=== PATIENT | female | born 1955 | race Caucasian/White ===

== ENCOUNTER 2017-01-08 08:13 | Inpatient (IN) | payer BC ==
[~2017-01-08] VITALS: Ht 162.6 cm; Wt 93.0 kg
[~2017-01-08 08:13] MED LIST: CALC600T9 PO; IBUP-103 PO; MULT-506 PO
[2017-01-08] MEDS ORDERED: SODIUM CHLORIDE 0.9% 1000ML 1,000 ML IV STA (08:51)
[2017-01-08 09:10] LABS: URINE APPEARANCE CLEAR (CLEAR); URINE BILIRUBIN NEG (NEG); URINE COLOR YELLOW; URINE NITRITE NEG (NEG); URINE PH 7.5 (4.5-7.5); UROBILINOGEN NEG (NEG)
[2017-01-08 09:12] LABS: MANUAL MICROSCOPIC REQUIRED? NO; REVIEW REQ? NO
[2017-01-08 09:19] LABS: BASO % 0.3 %; BASO ABS # 0.02 K/uL (0-0.2); COMPLETE YES; IG% 0.2 %; LYMPH % 30.6 %; LYMPH ABS # 1.93 K/uL (1.2-3.4); MEAN CELL VOLUME 88.7 fL (80-100); MEAN CORPUSCULAR HEMOGLOBIN 31.3 pg (25-34); MEAN CORPUSCULAR HGB CONC 35.3 g/dl (32-36); MEAN PLATELET VOLUME 10.1 fL (7.4-10.4); MONO % 7.3 %; NEUT % 60.6 %; PLATELET COUNT 207 K/uL (130-400); RED BLOOD COUNT 4.51 M/uL (4.2-5.4)
[2017-01-08 09:30] LABS: PROTHROMBIN TIME (PATIENT) 10.7 SECONDS (9.0-12.0)
[2017-01-08 09:40] LABS: ALT/SGPT 48 U/L (12-78); AST/SGOT 42 U/L (15-37); BLOOD UREA NITROGEN 11 mg/dl (7-18); BUN/CREATININE RATIO 15.2 (10-20); CALCIUM 9.5 mg/dl (8.5-10.1); CARBON DIOXIDE 29 mmol/L (21-32); CHLORIDE 104 mmol/L (98-107); CREATININE 0.71 mg/dl (0.60-1.20); GLUCOSE 129 mg/dl (70-99); POTASSIUM 3.5 mmol/L (3.5-5.1); SODIUM 143 mmol/L (136-145)
[2017-01-08 09:52] LABS: ALB/GLOB RATIO 1.2 (0.9-2); ALKALINE PHOSPHATASE 104 U/L (45-117); CKMB/CK RATIO 0.9 (0-3.0)
--- NOTE | 2017-01-08 09:57 | DIAGNOSTIC IMAGING REPORT ---
TWO VIEW CHEST CLINICAL HISTORY: Midthoracic back pain. Breast mass. FINDINGS: PA and lateral chest radiographs are compared to study dated 08/02/2012. The heart is top normal for projection. There is mild atherosclerotic calcification of the thoracic aorta. The lungs and pleural spaces are clear. There is no pneumothorax. The skeletal structures are osteopenic. The bony thorax appears intact. IMPRESSION: No active disease in the chest. Electronically signed by: David Ordonez M.D. 01/08/2017 9:56 AM Dictated Date/Time: 01/08/2017 9:54 AM
--- NOTE | 2017-01-08 09:59 | DIAGNOSTIC IMAGING REPORT ---
THORACIC SPINE 3 VIEWS ROUTINE CLINICAL HISTORY: MID BACK PAIN, R BREAST MASS COMPARISON STUDY: No previous studies for comparison. FINDINGS: The paraspinal line is not displaced. No destructive lesions are visualized on conventional radiographic imaging. There is slight loss in height of the T5 vertebra and T4 vertebra. There are multilevel degenerative changes present. IMPRESSION: Mild age-indeterminate T4 and T5 vertebral body compression deformities. Electronically signed by: Julien Ward M.D. 01/08/2017 9:57 AM Dictated Date/Time: 01/08/2017 9:56 AM
[2017-01-08] MEDS ORDERED: OPTIRAY 320 IV PRN (10:15)
--- NOTE | 2017-01-08 11:49 | DIAGNOSTIC IMAGING REPORT ---
CT ANGIOGRAPHY OF THE CHEST, PULMONARY EMBOLUS PROTOCOL CLINICAL HISTORY: Back pain. Elevated d-dimer. Right breast mass. COMPARISON STUDY: Chest radiograph August 02, 2012. TECHNIQUE: Following IV administration of 92 mL of Optiray-320, helical axial images of the chest were obtained utilizing the pulmonary embolus protocol. Maximal intensity projections and sagittal and coronal reformats were viewed on an independent 3D workstation. IV contrast was administered without complication. CT DOSE: 672.48 mGy.cm FINDINGS: No pulmonary emboli are identified. There is no evidence of thoracic aortic dissection. The heart is mildly enlarged. There is extensive coronary artery calcification. No enlarged mediastinal or hilar lymph nodes are present. Note is made of an enlarged right axillary lymph node that measures 2.4 x 1.8 cm. There is an ulcerated periareolar right breast mass that measures approximately 5.8 x 4.3 cm. There is associated skin thickening. There is no left axillary lymphadenopathy. Central airways are patent. Two right middle lobe nodules measure up to 6 mm. Note is made of a 4 mm left upper lobe nodule shown on image 233 of 293. There is mosaic attenuation within the lungs. There is no consolidation to suggest pneumonia. There is a 1.5 cm lytic lesion within the posterior left ninth rib. Numerous lytic lesions are noted within visualized skeletal structures, including lesions within the T4, T5 and T6 vertebra with mild loss of height of the T5 vertebral body. There is extensive epidural spread of tumor at these levels, which is suboptimally assessed by CT. There is resultant central canal narrowing, likely moderate to severe in degree. There is possible cord compression. Multiple neural foramen are narrowed by the tumor. The tumor extends into the posterior elements. Upper abdomen is unremarkable with the exception of fatty infiltration of the liver. IMPRESSION: 1. No pulmonary emboli identified. 2. 5.8 cm right subareolar ulcerated breast mass highly suggestive of breast malignancy. Enlarged right axillary lymph node suggestive of rosio spread of disease. 3. Numerous lytic skeletal lesions within the thorax, including T4, T5 and T6 vertebral metastases with pathologic fracture of T5 and impending fracture of T4. Extensive epidural spread of tumor results in moderate to severe narrowing of the central canal which is suboptimally assessed by CT. Possible cord compression. An MRI of the thoracic spine could be obtained with and without contrast. These findings are highly suggestive of a primary right breast malignancy with skeletal metastases. 4. Several small indeterminate pulmonary nodules. Electronically signed by: Daniel Cali M.D. 01/08/2017 11:48 AM Dictated Date/Time: 01/08/2017 11:10 AM
--- NOTE | 2017-01-08 12:00 | EMERGENCY ROOM VISIT NOTE ---
History First contact with patient: 08:22 Chief Complaint: OTHER COMPLAINT Stated Complaint: ULCER ON BREAST, PAIN IN BACK History of Present Illness Patient is a 61-year-old white female who presents to the emergency department accompanied by her for evaluation of 2 complaints. First, she notes that she has had an open draining ulceration on her right breast for over a year. Patient states that it started as a small mass that was slightly sore, then she reports that the "erupted to the surface." The ulceration has been a fairly stable size for some time. It occasionally drains foul-smelling fluid. She notes that it is occasionally tender when she bumps it or touches it. She has tried applying antibiotic ointment to the area. She denies ever noticing increased redness, warmth or swollen lymph nodes in her armpit. She has not been running a fever recently. Secondly, patient notes that she has developed mid back pain over the last month. She describes it as pain along her spine in her mid back between her shoulder blades along her bra line. It has been waxing and waning for about a month, but became "debilitating" this weekend. Her reports that she was in bed all weekend due to the pain. She states that occasionally it is worse with deep breathing and sometimes it is worse with movement, other times she does not have any pain at all. At its worst she rates it a 10/10. Initially her discomfort was alleviated with ibuprofen, but more recently this has been ineffective. The patient presently rates her discomfort a 2/10. She denies any headache, lightheadedness, dizziness or vision changes. No neck or low back pain. She denies any anterior chest pain, palpitations or shortness of breath. She had a cough that was productive of scant mucus recently. She denies any abdominal pain, notes slight nausea last evening, no vomiting, diarrhea or urinary symptoms. No melena, hematochezia or hematemesis. She reports she went through early menopause at age 34. She has never been . She had a D&C many years ago. She has not seen a physician for some time. She denies any diagnoses of hypertension, diabetes or thyroid dysfunction. Review of Systems Review of systems as per HPI. All other systems reviewed were negative. 10 systems reviewed. Past Medical/Surgical History Medical Problems: (1) Breast mass (2) Contusion of left foot (3) Contusion of left foot (4) No Known Active Medical Problems Surgical Problems: (1) History of dilatation and curettage Electronic medical records are reviewed and summarized as above/below. See Problem List. Family History Diabetes mellitus FH: thyroid disease Hypertension Social History Smoking Status: Current Every Day Smoker Drug Use: none Marital Status: Housing Status: lives with family Occupation Status: employed Current/Historical Medications Scheduled Calcium Carbonate-Vitamin D (Calcium + D), 1 TAB PO DAILY Allergies Coded Allergies: Codeine (Verified Allergy, Mild, "DRUNK FEELING", 01/08/17) Physical Exam Vital Signs Date Time Temp Pulse Resp B/P Pulse Ox O2 Delivery O2 Flow Rate FiO2 01/08/17 15:13 Nasal Cannula 2.0 01/08/17 14:59 67 16 150/56 91 Room Air 01/08/17 13:53 71 01/08/17 13:23 67 20 178/93 95 Room Air 01/08/17 11:52 71 16 119/52 93 Room Air 01/08/17 09:56 66 18 167/70 96 Room Air 01/08/17 09:05 74 01/08/17 08:18 36.9 80 18 224/97 95 Room Air Physical Exam CONSTITUTIONAL: Patient is a well-appearing 61-year-old white female who is awake and alert and in mild distress due to her back pain. She is noted to be hypertensive in triage with a blood pressure of 224/97. Repeat vital signs noted improved blood pressure. EYES: Pupils equal, round, reactive to light and accommodation. EOMs intact without nystagmus. Sclera are anicteric. ENT: Tympanic membranes intact, with normal landmarks. External canals are clear. Oral and nasopharynx are clear. Mucous membranes are moist, no lesions , tongue and gums appear normal. NECK: No bruits auscultated. Supple without lymphadenopathy. No thyromegaly. No meningeal signs. Full active range of motion without discomfort. CARDIOVASCULAR: Regular rate and rhythm, with normal S1 and S2, no murmur or gallop or rub is heard. No carotid bruits auscultated. No JVD. Peripheral pulses easy to palpable. RESPIRATORY: Breath sounds equal and clear to auscultation without wheezes, rales, or rhonchi heard. Full and equal chest expansion without accessory muscle use or retractions. BREASTS: Examination of the right breast show a large, open ulceration over the areola, with palpable mass underlying. There is scant drainage noted. No fluctuance is suspected abscess, no increased warmth or induration to indicate cellulitis. No palpable masses or skin lesions are noted on the left breast. No axillary lymphadenopathy is appreciated. GI: Bowel sounds are present. Abdomen is soft, nontender, nondistended. No organomegaly. No pulsatile masses. No guarding or rebound. MUSCULOSKELETAL: Full range of motion of extremities x 4 with good strength. No cyanosis, edema, joint tenderness or swelling. No deformity. Examination of the patient's back does not show any evidence for soft tissue swelling, ecchymosis, abrasions or outward signs of trauma. She has reproducible tenderness to palpation in the mid thoracic region between the scapulae, in addition to some paraspinous muscle tenderness in this region. No pain over the spinous processes of the cervical or lumbar spine and full spine range of motion is noted. INTEGUMENTARY: No lesions or rash, normal skin turgor. NEUROLOGICAL: Alert, oriented, and cooperative. Cranial nerves, sensation and strength grossly intact. Pupils round, equal, and react to light, EOMs are full. LYMPH: No lymphadenopathy. Medical Decision & Procedures ER Provider Diagnostic Interpretation: CT ANGIOGRAPHY OF THE CHEST, PULMONARY EMBOLUS PROTOCOL CLINICAL HISTORY: Back pain. Elevated d-dimer. Right breast mass. COMPARISON STUDY: Chest radiograph August 02, 2012. TECHNIQUE: Following IV administration of 92 mL of Optiray-320, helical axial images of the chest were obtained utilizing the pulmonary embolus protocol. Maximal intensity projections and sagittal and coronal reformats were viewed on an independent 3D workstation. IV contrast was administered without complication. CT DOSE: 672.48 mGy.cm FINDINGS: No pulmonary emboli are identified. There is no evidence of thoracic aortic dissection. The heart is mildly enlarged. There is extensive coronary artery calcification. No enlarged mediastinal or hilar lymph nodes are present. Note is made of an enlarged right axillary lymph node that measures 2.4 x 1.8 cm. There is an ulcerated periareolar right breast mass that measures approximately 5.8 x 4.3 cm. There is associated skin thickening. There is no left axillary lymphadenopathy. Central airways are patent. Two right middle lobe nodules measure up to 6 mm. Note is made of a 4 mm left upper lobe nodule shown on image 233 of 293. There is mosaic attenuation within the lungs. There is no consolidation to suggest pneumonia. There is a 1.5 cm lytic lesion within the posterior left ninth rib. Numerous lytic lesions are noted within visualized skeletal structures, including lesions within the T4, T5 and T6 vertebra with mild loss of height of the T5 vertebral body. There is extensive epidural spread of tumor at these levels, which is suboptimally assessed by CT. There is resultant central canal narrowing, likely moderate to severe in degree. There is possible cord compression. Multiple neural foramen are narrowed by the tumor. The tumor extends into the posterior elements. Upper abdomen is unremarkable with the exception of fatty infiltration of the liver. IMPRESSION: 1. No pulmonary emboli identified. 2. 5.8 cm right subareolar ulcerated breast mass highly suggestive of breast malignancy. Enlarged right axillary lymph node suggestive of rosio spread of disease. 3. Numerous lytic skeletal lesions within the thorax, including T4, T5 and T6 vertebral metastases with pathologic fracture of T5 and impending fracture of T4. Extensive epidural spread of tumor results in moderate to severe narrowing of the central canal which is suboptimally assessed by CT. Possible cord compression. An MRI of the thoracic spine could be obtained with and without contrast. These findings are highly suggestive of a primary right breast malignancy with skeletal metastases. 4. Several small indeterminate pulmonary nodules. TWO VIEW CHEST CLINICAL HISTORY: Midthoracic back pain. Breast mass. FINDINGS: PA and lateral chest radiographs are compared to study dated 08/02/2012. The heart is top normal for projection. There is mild atherosclerotic calcification of the thoracic aorta. The lungs and pleural spaces are clear. There is no pneumothorax. The skeletal structures are osteopenic. The bony thorax appears intact. IMPRESSION: No active disease in the chest. THORACIC SPINE 3 VIEWS ROUTINE CLINICAL HISTORY: MID BACK PAIN, R BREAST MASS COMPARISON STUDY: No previous studies for comparison. FINDINGS: The paraspinal line is not displaced. No destructive lesions are visualized on conventional radiographic imaging. There is slight loss in height of the T5 vertebra and T4 vertebra. There are multilevel degenerative changes present. IMPRESSION: Mild age-indeterminate T4 and T5 vertebral body compression deformities. Laboratory Results 01/08/17 09:05 Red Blood Count 4.51, Mean Corpuscular Volume 88.7, Mean Corpuscular Hemoglobin 31.3, Mean Corpuscular Hemoglobin Concent 35.3, Mean Platelet Volume 10.1, Neutrophils (%) (Auto) 60.6, Lymphocytes (%) (Auto) 30.6, Monocytes (%) (Auto) 7.3, Eosinophils (%) (Auto) 1.0, Basophils (%) (Auto) 0.3, Neutrophils # (Auto) 3.82, Lymphocytes # (Auto) 1.93, Monocytes # (Auto) 0.46, Eosinophils # (Auto) 0.06, Basophils # (Auto) 0.02 01/08/17 09:05 Test 01/08/17 08:50 01/08/17 09:05 01/08/17 09:12 Urine Color YELLOW Urine Appearance CLEAR (CLEAR) Urine pH 7.5 (4.5-7.5) Urine Specific [place] 1.020 (1.000-1.030) Urine Protein NEG (NEG) Urine Glucose (UA) NEG (NEG) Urine Ketones TRACE (NEG) Urine Occult Blood NEG (NEG) Urine Nitrite NEG (NEG) Urine Bilirubin NEG (NEG) Urine Urobilinogen NEG (NEG) Urine Leukocyte Esterase NEG (NEG) White Blood Count 6.30 K/uL (4.8-10.8) Red Blood Count 4.51 M/uL (4.2-5.4) Hemoglobin 14.1 g/dL (12.0-16.0) Hematocrit 40.0 % (37-47) Mean Corpuscular Volume 88.7 fL (80-100) Mean Corpuscular Hemoglobin 31.3 pg (25-34) Mean Corpuscular Hemoglobin Concent 35.3 g/dl (32-36) Platelet Count 207 K/uL (130-400) Mean Platelet Volume 10.1 fL (7.4-10.4) Neutrophils (%) (Auto) 60.6 % Lymphocytes (%) (Auto) 30.6 % Monocytes (%) (Auto) 7.3 % Eosinophils (%) (Auto) 1.0 % Basophils (%) (Auto) 0.3 % Neutrophils # (Auto) 3.82 K/uL (1.4-6.5) Lymphocytes # (Auto) 1.93 K/uL (1.2-3.4) Monocytes # (Auto) 0.46 K/uL (0.11-0.59) Eosinophils # (Auto) 0.06 K/uL (0-0.5) Basophils # (Auto) 0.02 K/uL (0-0.2) RDW Standard Deviation 39.7 fL (36.4-46.3) RDW Coefficient of Variation 12.3 % (11.5-14.5) Immature Granulocyte % (Auto) 0.2 % Immature Granulocyte # (Auto) 0.01 K/uL (0.00-0.02) Prothrombin Time 10.7 SECONDS (9.0-12.0) Prothromb Time International Ratio 1.0 (0.9-1.1) Activated Partial Thromboplast Time 25.3 SECONDS (21.0-31.0) Partial Thromboplastin Ratio 1.0 Anion Gap 10.0 mmol/L (3-11) Est Creatinine Clear Calc Drug Dose 90.8 ml/min Estimated GFR () 105.8 Estimated GFR (Non- 91.3 BUN/Creatinine Ratio 15.2 (10-20) Calcium Level 9.5 mg/dl (8.5-10.1) Total Bilirubin 0.7 mg/dl (0.2-1) Aspartate Amino Transf (AST/SGOT) 42 U/L (15-37) Alanine Aminotransferase (ALT/SGPT) 48 U/L (12-78) Alkaline Phosphatase 104 U/L (45-117) Total Creatine Kinase 68 U/L (26-192) Creatine Kinase MB 0.6 ng/ml (0.5-3.6) Creatine Kinase MB Ratio 0.9 (0-3.0) Troponin I < 0.015 ng/ml (0-0.045) Total Protein 7.0 gm/dl (6.4-8.2) Albumin 3.8 gm/dl (3.4-5.0) Globulin 3.2 gm/dl (2.5-4.0) Albumin/Globulin Ratio 1.2 (0.9-2) Thyroid Stimulating Hormone (TSH) 1.100 uIu/ml (0.300-4.500) Bedside D-Dimer > 450 ng/mlFEU (0-450) Medications Administered Medications (Trade) Dose Ordered Sig/Elida Route Start Time Stop Time Status Last Admin Dose Admin Sodium Chloride (Nss 1000ml) 1,000 ml @ 250 mls/hr Q4H STAT IV 01/08/17 08:51 01/08/17 12:50 DC 01/08/17 10:00 250 MLS/HR Morphine Sulfate (MoRPHine SULFATE INJ) 6 mg NOW STAT IV 01/08/17 12:38 01/08/17 12:40 DC 01/08/17 13:18 6 MG Ondansetron HCl (Zofran Inj) 4 mg NOW STAT IV 01/08/17 12:38 01/08/17 12:40 DC 01/08/17 13:20 4 MG Ondansetron HCl (Zofran Inj) 4 mg STK-MED ONCE .ROUTE 01/08/17 14:55 01/08/17 14:59 DC 01/08/17 15:12 4 MG ECG Indication: back/shoulder pain Rate (beats per minute): 72 Rhythm: normal sinus Findings: no acute ischemic change, no ectopy Change: no significant change ED Course Patient was seen and evaluated as above. Her old records are reviewed. She presents to the emergency department for evaluation of mid back pain 1 month in the setting of a right breast ulceration that has been present for several months. Immediately upon examining her, I was concerned regarding a breast malignancy. IV lock was initiated. She declined any medication for discomfort initially. 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 She was hydrated with normal saline solution. EKG was performed and was as noted above. She was laboratory studies were collected including CBC with differential, coags, cardiac enzymes, TSH, CMP and [id number] d-dimer. Chest x-ray and thoracic spine x-rays were obtained. EKG did not demonstrate any evidence for acute ischemia changes or ectopy. Chest x-ray and a thoracic spine x-rays were essentially negative. Laboratory studies did not demonstrate any leukocytosis or anemia. No coagulopathy. Electrolytes, renal functions and liver functions are within normal limits. Cardiac enzymes are negative 1. TSH is indicative of a euthyroid state. Urinalysis was without signs of infection. D-dimer was elevated and therefore given her back pain, CT angiography of the chest was performed. Findings are as noted above. There was no evidence for pulmonary embolus. She has a 6 cm right ulcerated breast mass with enlarged right axillary lymph nodes suggestive of breast malignancy with notable spread of the disease. She also has numerous lytic skeletal lesions noted in the thoracic spine, with epidural spread of the tumor resulting in moderate to severe narrowing of the central canal. Possibility of cord compression was raised by the interpreting radiologist. MRI was suggested. Findings were highly suggestive of skeletal metastasis from her right breast malignancy. All laboratory and diagnostic imaging studies were reviewed with attending physician, and discussed with the patient and her significant other at length. Admission was discussed with Dr. Castaneda with the [facility] hospitalist service. I did also discuss the patient's CT findings with Dr. Becker, who suggested that given that she is neurologically intact treatment of her metastatic disease to her spine and likely be supportive/palliative in care and not likely to be surgical in nature. The patient did request something for her back pain and was ordered IV morphine and Zofran. She otherwise remained neurologically intact, and remained hemodynamically stable during her emergency department workup. Differential diagnoses entertained included cellulitis, breast mass, acute coronary syndrome , thoracic compression fractures, back strain, pulmonary embolus, aortic dissection, pneumonia, pneumothorax, mass or malignancy, among others. Medical Decision See ED course Impression Primary Impression: Metastatic breast cancer Additional Impression: Thoracic back pain Departure Information Referrals Isauro Chaidez M.D. (PCP) Patient Instructions My [facility] Problem Qualifiers
[2017-01-08] MEDS ORDERED: ONDANSETRON INJ 2 MG/ML 2 ML VIAL IV STA (12:38)
[2017-01-08] MEDS ORDERED: MoRPHine SULFATE 10 MG/ML CARP/VIAL IV STA (12:38)
[2017-01-08] MEDS ORDERED: MoRPHine SULFATE 4 MG/ML 1 ML CARP\\VIAL IV PRN (12:45)
[2017-01-08] MEDS ORDERED: LORAZEPAM 2 MG/ML 1 ML VIAL IV STA (14:47)
[2017-01-08] MEDS ORDERED: ONDANSETRON INJ 2 MG/ML 2 ML VIAL ONE (14:55)
[2017-01-08] MEDS ORDERED: ALUMINUM/MAGNESIUM/SIMETH (MAALOX MAX) 30 ML UDC PO PRN (15:00)
[2017-01-08] MEDS ORDERED: ONDANSETRON INJ 2 MG/ML 2 ML VIAL IV PRN (15:00)
[2017-01-08] MEDS ORDERED: ACETAMINOPHEN 325 MG TAB PO PRN (15:00)
[2017-01-08] MEDS ORDERED: MoRPHine SULFATE 2 MG/ML CARP IV PRN (15:00)
[2017-01-08] MEDS ORDERED: MAGNESIUM HYDROXIDE SUSP 30 ML UDC PO PRN (15:00)
[2017-01-08] MEDS ORDERED: HydrALAZINE HCL 20 MG/ML VIAL IV. PRN (15:00)
[2017-01-08 17:15] VITALS: BP 161/84; PULSE 63; TEMP 37; O2SAT 92
[2017-01-08 17:56] VITALS: BP 161/84; PULSE 63; TEMP 37; O2SAT 92; Ht 162.6 cm; Wt 93.0 kg
[2017-01-08 19:12] VITALS: BP 165/87; PULSE 66; TEMP 36.9; O2SAT 91
[2017-01-08] MEDS: DEXAMETHASONE INJ 4 MG in SYRINGE 0 ML IV SCH (20:09)
--- NOTE | 2017-01-08 20:51 | History and Physical ---
History & Physical Date of Service Jan 08, 2017. History & Physical H&P as dictated by DEBORAH Huang (documented in wrong patient encounter previously) History & Physical Date & Time of Service: Jan 08, 2017 at 14:19 Chief Complaint: Back pain Primary Care Physician: Isauro Chaidez M.D. History of Present Illness Source: patient, family This patient is a pleasant 61-year-old female that presented to the emergency department complaining of mid back pain that she has noticed over the last few months. It got particularly bad over the weekend. She has been taking ibuprofen with minimal relief. She denies any weakness, numbness or tingling in her arms or legs. She denies any shortness of breath. The patient also reports a lesion on her right breast has been there for several months. It started as a tender nodule, and then eroded to the surface. She reports that it has been draining green, foul-smelling fluid. She denies any fever or chills. She knew that it had to be addressed, however she has been having a difficult time with family members being ill. she has not seen a doctor in many years. She denies any masses or pain in the left breast. She denies any known history of cancer. Workup in the emergency department consisted of a CT of the chest. This is worrisome for a malignant breast lesion on the right. It was also noted that she has metastatic lesions to the T-spine, particular T4, T5 and T6. There is an associated fracture at T5 and a "impending fracture at T4." There is also concern for the mass eroding into the epidural space. The case was reviewed with orthopedics-Dr. Becker. The patient will be admitted for further pain management and workup. Past Medical/Surgical History Medical Problems: No known medical problems, however she has not seen a doctor in many years She does note going through early menopause at the age of 34. She was treated with Premarin for hot flashes for approximately 10 years. Surgical Problems: (1) History of dilatation and curettage Status: Resolved Family History Diabetes mellitus FH: thyroid disease Hypertension Father-diabetes. in his 70s. Mother-reportedly of old age at the age of 85 Sister-hyperthyroidism/goiter Social History Smoking Status: Current Every Day Smoker (1/2 PPD) Alcohol Use: none Drug Use: none Marital Status: Housing status: lives with family Occupational Status: employed Multi-Drug Resistant Organisms History of MDRO: No Allergies Coded Allergies: Codeine (Verified Allergy, Mild, "DRUNK FEELING", 01/08/17) Home Medications Scheduled Calcium Carbonate-Vitamin D (Calcium + D), 1 TAB PO DAILY Review of Systems 10 system review performed and negative unless noted in HPI or below Physical Exam General Appearance: no apparent distress Head: normocephalic Eyes: EOMI ENT: + pertinent finding (oral mucosa dry.) Neck: no JVD Respiratory/Chest: lungs clear, + pertinent finding (approximately 3 cm ulceration noted of the right breast over the nipple. Palpable mass approximate 4 cm in diameter underneath. No foul drainage noted. No odor noted. No masses noted in the left breast. No palpable lymphadenopathy noted.) Cardiovascular: regular rate, rhythm Abdomen/GI: normal bowel sounds, non tender, soft Extremities/Musculoskelatal: no calf tenderness, no pedal edema Neurologic/Psych: no motor/sensory deficits, normal reflexes Skin: warm/dry Diagnostics Diagnostic Radiology Patient: HUMBERTO BATISTA Address1: [address] [place] [address] Rec: [id number] Address2: Acct ID: [id number] [facility] Zip: [place] [address] Date: 1955 Sex: F Room/Bed: Ref Phy: Isauro Chaidez M.D. SC: DELVIS Hollis Phy: Report #: [id number] Aylin Phy: Isauro Chaidez M.D. Test: CXPEA Admit Phy: Recruiting Coordinator: YAQUELIN Interpreting Phy: Daniel Cali MD Diagnosis: ULCER ON BREAST, PAIN IN BACK Ordering Phy: Chely Delgado Service Date: 01/08/17 Admit Date: 01/08/17 MNE: PWRSCRIBE CONF: DICTATED BY: Daniel Cali MD]] CC: Chely Delgado PA Guillard, Frank, M.D. Ziff, Theodore, M.D. Endcc: ] CT ANGIOGRAPHY OF THE CHEST, PULMONARY EMBOLUS PROTOCOL CLINICAL HISTORY: Back pain. Elevated d-dimer. Right breast mass. COMPARISON STUDY: Chest radiograph August 02, 2012. TECHNIQUE: Following IV administration of 92 mL of Optiray-320, helical axial images of the chest were obtained utilizing the pulmonary embolus protocol. Maximal intensity projections and sagittal and coronal reformats were viewed on an independent 3D workstation. IV contrast was administered without complication. CT DOSE: 672.48 mGy.cm FINDINGS: No pulmonary emboli are identified. There is no evidence of thoracic aortic dissection. The heart is mildly enlarged. There is extensive coronary artery calcification. No enlarged mediastinal or hilar lymph nodes are present. Note is made of an enlarged right axillary lymph node that measures 2.4 x 1.8 cm. There is an ulcerated periareolar right breast mass that measures approximately 5.8 x 4.3 cm. There is associated skin thickening. There is no left axillary lymphadenopathy. Central airways are patent. Two right middle lobe nodules measure up to 6 mm. Note is made of a 4 mm left upper lobe nodule shown on image 233 of 293. There is mosaic attenuation within the lungs. There is no consolidation to suggest pneumonia. There is a 1.5 cm lytic lesion within the posterior left ninth rib. Numerous lytic lesions are noted within visualized skeletal structures, including lesions within the T4, T5 and T6 vertebra with mild loss of height of the T5 vertebral body. There is extensive epidural spread of tumor at these levels, which is suboptimally assessed by CT. There is resultant central canal narrowing, likely moderate to severe in degree. There is possible cord compression. Multiple neural foramen are narrowed by the tumor. The tumor extends into the posterior elements. Upper abdomen is unremarkable with the exception of fatty infiltration of the liver. IMPRESSION: 1. No pulmonary emboli identified. 2. 5.8 cm right subareolar ulcerated breast mass highly suggestive of breast malignancy. Enlarged right axillary lymph node suggestive of rosio spread of disease. 3. Numerous lytic skeletal lesions within the thorax, including T4, T5 and T6 vertebral metastases with pathologic fracture of T5 and impending fracture of T4. Extensive epidural spread of tumor results in moderate to severe narrowing of the central canal which is suboptimally assessed by CT. Possible cord compression. An MRI of the thoracic spine could be obtained with and without contrast. These findings are highly suggestive of a primary right breast malignancy with skeletal metastases. 4. Several small indeterminate pulmonary nodules. Electronically signed by: Daniel Cali M.D. 01/08/2017 11:48 AM Dictated Date/Time: 01/08/2017 11:10 AM The status of this report is Signed. Draft = Not yet reviewed or approved by Radiologist. Signed = Reviewed and approved by Radiologist. <AttendingPhy></AttendingPhy> <FamilyPhy>Isauro Chaidez M.D.</FamilyPhy> < PrimaryPhy>Isauro Chaidez M.D.</PrimaryPhy> <UnitNumber>[id number]</UnitNumber > <VisitNumber>[id number]</VisitNumber> <PatientName>HUMBERTO BATISTA</ PatientName> <DateOfBirth>1955</DateOfBirth> <Location>C.[facility]ANET[facility]</Location> < ServiceDate>01/08/17</ServiceDate> <MNE>ESINDI</MNE> <OrderingPhy>Chely Delgado PA</OrderingPhy> <OrderingPhyMNE>f rep ord dr bansal</OrderingPhyMNE> < DictatingPhyMNE>f rep dict dr bansal</DictatingPhyMNE> <CCListMNE>f rep ct mne</ CCListMNE> <AdmittingPhyMNE>f pt admit d Impression Assessment and Plan 61-year-old female presented to the emergency department with 2 separate complaints: Right breast mass and mid back pain. Both of them going on for quite some time, at least months. CT of the chest consistent with a right breast mass worrisome for breast malignancy with associated metastatic disease to the T-spine Presumed new dx Breast CA -Admit to oncology -General surgery consult for Breast bx -Orthopedic consult for metastatic thoracic dz-->erosion into epidural space -Neuro checks q 4h -Will need heme/onc/rad onc consults once bx are back -morphine 2 mg q 4 prn for back pain -NPO after midnight -MRI C/T/L spine to eval for further mets and to access spinal canal Presumed HTN-BP elevated upon arrival. Improved now -Hydralazine 10 mg IV q 6 hr PRN -follow BP-->consider initiating longstanding therapy if BP remains high with MANJU of B Luis Daniel DVT prophylaxis -We will hold off on chemical means as the patient will likely undergo a biopsy in the near future -Teds, SCDs -Consider initiating chemical means with heparin or Lovenox after biopsy CODE STATUS -LEVEL I FULL CODE This chart was completed in part utilizing [employer] [facility] [employer] Speech Voice Recognition software. Attempts were made to minimize the grammatical errors, random word insertions, pronoun errors and incomplete sentences. Any formal questions or concerns about the content, text or information contained within the body of this dictation should be directly addressed to the provider for clarification. Level of Care Oncology Resuscitation Status FULL RESUSCITATION VTE Prophylaxis VTE Risk Assessment Done? Y/N: Yes Risk Level: Moderate Given or contraindicated: T.E.DRoland Stockings, SCD's <Electronically signed by Cynthia Huang PA-C> Signed: 01/08/17 1434 Signed: MNE: [facility] History and Physical Template <AttendingPhy>No Doctor, Assigned</AttendingPhy><EDPhy></EDPhy> <FamilyPhy> Isauro Chaidez M.D.</FamilyPhy> <PrimaryPhy>Isauro Chaidez M.D.</PrimaryPhy>< UnitNumber>[id number]</UnitNumber><VisitNumber>[id number]</VisitNumber>< PatientName>HUBMERTO BATISTA</PatientName><DateOfBirth>1955</DateOfBirth><Age >61</Age><Location>z.PTNAV</Location><ServiceDate>01/08/17</ServiceDate><CC> Isauro Chaidez M.D. Lyla Elizabeth, MD Huang, Cynthia Figueroa PA-C</CC><MNE>ACUTEMED</MNE> Physician Card Tender Supervision Note: I interviewed and examined the patient. Discussed with DEBORAH Huang and agree with findings and plan as documented in the note. Any exceptions or clarifications are listed here: Patient admitted with intractable back pain and found to have pathologic fractures of the thoracic spine and a probable breast cancer with a fungating right breast mass. Pain is improved with morphine in the ER. She has no neurologic signs or symptoms by history or exam. Physical exam: Vitals reviewed and blood pressure is improved No acute distress, obese Anicteric sclerae, oropharynx clear Regular rate and rhythm, no murmurs gallops or rubs normal S1-S2 Breast: Right breast with palpable large mass in the subareolar region with some radiation through to the skin that has eroded most of the areola Lungs clear to auscultation bilaterally no wheezes crackles or rhonchi Abdomen positive bowel sounds, soft, nontender, nondistended, obese Extremities no edema, 2+ dorsalis pedis pulses Neuro: Full strength in all extremities, sensation intact throughout to light touch A/P: 61-year-old female with a fungating right breast mass and intractable back pain secondary to pathologic fracture of T5 with mass in the epidural space causing central canal narrowing. No current neurological symptoms. Will treat pain in the back and obtain orthopedic spine consultation, neuro checks every 4 hours. We'll check MRI of the cervical, thoracic, lumbar spine. Consult general surgery to assist with obtaining breast biopsy and further evaluation and treatment to follow based on results of the period Documented By: Lyla Elizabeth
[2017-01-09 01:09] VITALS: BP 147/75; PULSE 66; TEMP 37.1; O2SAT 92
[2017-01-09] MEDS ORDERED: GADAVIST IV PRN (02:30)
[2017-01-09] MEDS: DEXAMETHASONE INJ 4 MG in SYRINGE 0 ML IV SCH ×3 (04:25→20:27)
[2017-01-09 04:29] VITALS: BP 132/69; PULSE 75; TEMP 37.3; O2SAT 93
[2017-01-09 06:14] LABS: COMPLETE YES; HEMATOCRIT 39.2 % (37-47); IG% 0.4 %; LYMPH % 20.2 %; LYMPH ABS # 0.99 K/uL (1.2-3.4); MEAN CELL VOLUME 88.7 fL (80-100); MEAN CORPUSCULAR HEMOGLOBIN 31.2 pg (25-34); MEAN CORPUSCULAR HGB CONC 35.2 g/dl (32-36); MEAN PLATELET VOLUME 10.4 fL (7.4-10.4); MONO % 3.5 %; NEUT % 75.9 %; PLATELET COUNT 214 K/uL (130-400); RED BLOOD COUNT 4.42 M/uL (4.2-5.4); WHITE BLOOD COUNT 4.91 K/uL (4.8-10.8)
[2017-01-09 06:39] LABS: PROTHROMBIN TIME (PATIENT) 10.8 SECONDS (9.0-12.0)
[2017-01-09 06:45] LABS: BUN/CREATININE RATIO 25.7 (10-20); CALCIUM 9.5 mg/dl (8.5-10.1); CREATININE 0.6 mg/dl (0.60-1.20); MAGNESIUM 1.9 mg/dl (1.8-2.4); POTASSIUM 3.7 mmol/L (3.5-5.1)
--- NOTE | 2017-01-09 06:50 | DIAGNOSTIC IMAGING REPORT ---
MRI OF THE CERVICAL SPINE WITH AND WITHOUT CONTRAST CLINICAL HISTORY: Right breast mass. Evaluate for metastatic disease. COMPARISON: None. TECHNIQUE: Utilizing a 1.5 [place] magnet and dedicated coil, multiplanar, multiecho imaging of the cervical spine was performed before and after intravenous administration of 9 of Gadavist. FINDINGS: Alignment of the cervical spine is anatomic. Vertebral body heights are maintained. There is no marrow replacement. There is no intracanalicular mass or fluid collection. Visualized portions of the intracranial contents are unremarkable. Cervical cord signal and caliber are normal. Paravertebral soft tissues are unremarkable. C2-C3: The central canal and neural foramen are patent. C3-C4: Central canal and neural foramen are patent. C4-C5: There is minimal narrowing of the central canal. There is mild narrowing of the right neural foramen. C5-C6: Posterior disc osteophyte complex with a central disc protrusion is noted. This indents the ventral aspect of the cord. This results in moderate to severe narrowing of the central canal. There is no neural foraminal narrowing. C6-C7: Central disc protrusion is present. There is mild narrowing of the central canal. The neural foramen are patent. C7-T1: Central canal and neural foramen are patent. IMPRESSION: 1. No evidence of metastatic disease within the cervical spine. 2. Normal cervical cord signal and caliber. 3. Moderate to severe central canal stenosis at C5-C6 due to posterior disc osteophyte complex with a central disc protrusion which indents the ventral aspect of the cord. Electronically signed by: Daniel Cali M.D. 01/09/2017 6:48 AM Dictated Date/Time: 01/09/2017 6:43 AM
--- NOTE | 2017-01-09 06:54 | Surgery Progress Note ---
Surgery Progress Note Date of Service Jan 09, 2017. Subjective history, studies reviewed- will see pt later today/ this am Objective Vital Signs: Date Time Temp Pulse Resp B/P Pulse Ox O2 Delivery O2 Flow Rate FiO2 01/09/17 04:29 37.3 75 18 132/69 93 Room Air 01/09/17 01:09 37.1 66 20 147/75 92 Room Air 01/09/17 00:00 Room Air 01/08/17 19:12 36.9 66 18 165/87 91 Room Air 01/08/17 17:56 37.0 63 20 161/84 92 Room Air 01/08/17 17:15 37.0 63 20 161/84 92 Room Air 01/08/17 16:15 36.9 67 16 150/56 91 01/08/17 15:13 Nasal Cannula 2.0 01/08/17 14:59 67 16 150/56 91 Room Air 01/08/17 13:53 71 01/08/17 13:23 67 20 178/93 95 Room Air 01/08/17 11:52 71 16 119/52 93 Room Air 01/08/17 09:56 66 18 167/70 96 Room Air 01/08/17 09:05 74 01/08/17 08:18 36.9 80 18 224/97 95 Room Air Laboratory Results: Results Past 24 Hours Test 01/08/17 08:50 01/08/17 08:51 01/08/17 09:05 01/08/17 09:12 Range/Units Urine Color YELLOW Urine Appearance CLEAR CLEAR Urine pH 7.5 4.5-7.5 Urine Specific [place] 1.020 1.000-1.030 Urine Protein NEG NEG Urine Glucose (UA) NEG NEG Urine Ketones TRACE NEG Urine Occult Blood NEG NEG Urine Nitrite NEG NEG Urine Bilirubin NEG NEG Urine Urobilinogen NEG NEG Urine Leukocyte Esterase NEG NEG Creatine Kinase MB Ratio 0.9 0-3.0 White Blood Count 6.30 4.8-10.8 K/uL Red Blood Count 4.51 4.2-5.4 M/uL Hemoglobin 14.1 12.0-16.0 g/dL Hematocrit 40.0 37-47 % Mean Corpuscular Volume 88.7 80-100 fL Mean Corpuscular Hemoglobin 31.3 25-34 pg Mean Corpuscular Hemoglobin Concent 35.3 32-36 g/dl Platelet Count 207 130-400 K/uL Mean Platelet Volume 10.1 7.4-10.4 fL Neutrophils (%) (Auto) 60.6 % Lymphocytes (%) (Auto) 30.6 % Monocytes (%) (Auto) 7.3 % Eosinophils (%) (Auto) 1.0 % Basophils (%) (Auto) 0.3 % Neutrophils # (Auto) 3.82 1.4-6.5 K/uL Lymphocytes # (Auto) 1.93 1.2-3.4 K/uL Monocytes # (Auto) 0.46 0.11-0.59 K/uL Eosinophils # (Auto) 0.06 0-0.5 K/uL Basophils # (Auto) 0.02 0-0.2 K/uL RDW Standard Deviation 39.7 36.4-46.3 fL RDW Coefficient of Variation 12.3 11.5-14.5 % Immature Granulocyte % (Auto) 0.2 % Immature Granulocyte # (Auto) 0.01 0.00-0.02 K/uL Prothrombin Time 10.7 9.0-12.0 SECONDS Prothromb Time International Ratio 1.0 0.9-1.1 Activated Partial Thromboplast Time 25.3 21.0-31.0 SECONDS Partial Thromboplastin Ratio 1.0 Sodium Level 143 136-145 mmol/L Potassium Level 3.5 3.5-5.1 mmol/L Chloride Level 104 98-107 mmol/L Carbon Dioxide Level 29 21-32 mmol/L Anion Gap 10.0 3-11 mmol/L Blood Urea Nitrogen 11 7-18 mg/dl Creatinine 0.71 0.60-1.20 mg/dl Est Creatinine Clear Calc Drug Dose 90.8 ml/min Estimated GFR () 105.8 Estimated GFR (Non- 91.3 BUN/Creatinine Ratio 15.2 10-20 Random Glucose 129 70-99 mg/dl Calcium Level 9.5 8.5-10.1 mg/dl Total Bilirubin 0.7 0.2-1 mg/dl Aspartate Amino Transf (AST/SGOT) 42 15-37 U/L Alanine Aminotransferase (ALT/SGPT) 48 12-78 U/L Alkaline Phosphatase 104 45-117 U/L Total Creatine Kinase 68 26-192 U/L Creatine Kinase MB 0.6 0.5-3.6 ng/ml Troponin I < 0.015 0-0.045 ng/ml Total Protein 7.0 6.4-8.2 gm/dl Albumin 3.8 3.4-5.0 gm/dl Globulin 3.2 2.5-4.0 gm/dl Albumin/Globulin Ratio 1.2 0.9-2 Thyroid Stimulating Hormone (TSH) 1.100 0.300-4.500 uIu/ml Bedside D-Dimer > 450 0-450 ng/mlFEU Test 01/09/17 05:40 Range/Units White Blood Count 4.91 4.8-10.8 K/uL Red Blood Count 4.42 4.2-5.4 M/uL Hemoglobin 13.8 12.0-16.0 g/dL Hematocrit 39.2 37-47 % Mean Corpuscular Volume 88.7 80-100 fL Mean Corpuscular Hemoglobin 31.2 25-34 pg Mean Corpuscular Hemoglobin Concent 35.2 32-36 g/dl Platelet Count 214 130-400 K/uL Mean Platelet Volume 10.4 7.4-10.4 fL Neutrophils (%) (Auto) 75.9 % Lymphocytes (%) (Auto) 20.2 % Monocytes (%) (Auto) 3.5 % Eosinophils (%) (Auto) 0.0 % Basophils (%) (Auto) 0.0 % Neutrophils # (Auto) 3.73 1.4-6.5 K/uL Lymphocytes # (Auto) 0.99 1.2-3.4 K/uL Monocytes # (Auto) 0.17 0.11-0.59 K/uL Eosinophils # (Auto) 0.00 0-0.5 K/uL Basophils # (Auto) 0.00 0-0.2 K/uL RDW Standard Deviation 39.8 36.4-46.3 fL RDW Coefficient of Variation 12.3 11.5-14.5 % Immature Granulocyte % (Auto) 0.4 % Immature Granulocyte # (Auto) 0.02 0.00-0.02 K/uL Prothrombin Time 10.8 9.0-12.0 SECONDS Prothromb Time International Ratio 1.0 0.9-1.1 Sodium Level 141 136-145 mmol/L Potassium Level 3.7 3.5-5.1 mmol/L Chloride Level 103 98-107 mmol/L Carbon Dioxide Level 28 21-32 mmol/L Anion Gap 10.0 3-11 mmol/L Blood Urea Nitrogen 15 7-18 mg/dl Creatinine 0.60 0.60-1.20 mg/dl Est Creatinine Clear Calc Drug Dose 107.5 ml/min Estimated GFR () 113.2 Estimated GFR (Non- 97.7 BUN/Creatinine Ratio 25.7 10-20 Random Glucose 138 70-99 mg/dl Calcium Level 9.5 8.5-10.1 mg/dl Magnesium Level 1.9 1.8-2.4 mg/dl Assessment & Plan 01/09/17- Rt breast mass and Rt axillary mass with lymphadenopathy on CT will formulate a plan for bx/ diagnosis and also ask oncology to see pt in hospital- no plan for bx today addendum- I will be going out of town and will not be able to operate on her for 2-3 weeks. this was discussed with the patient and - I have talked to Dr Sameera Rosenbaum and she is going to see the patient. Dr Nguyen also following patient
--- NOTE | 2017-01-09 06:57 | DIAGNOSTIC IMAGING REPORT ---
MRI OF THE LUMBAR SPINE WITH AND WITHOUT CONTRAST CLINICAL HISTORY: Right breast mass. Evaluate for metastatic disease. COMPARISON STUDY: No previous studies for comparison. TECHNIQUE: Utilizing a 1.5 [place] magnet and dedicated coil, multiplanar, multiecho imaging of the lumbar spine was performed before and after uneventful IV administration of 9 mL of Gadavist. FINDINGS: For purposes of numbering on this exam, the L5-S1 disc space is assigned to axial image 27 of 30. Alignment of the lumbar spine is anatomic. A 9 mm T1 hypointense, T2 hypointense focus along anterior aspect of the inferior endplate of T12 likely reflects a metastasis. This is shown on the MRI of the thoracic spine which will be reported separately. There is no intracanalicular mass or fluid collection within the lumbar canal. Conus terminates at the upper L2 level. Paravertebral soft tissues are unremarkable. No marrow replacement is identified within the lumbar spine. Mild multilevel degenerative changes are present with minimal disc bulge at the L3-L4 level. Central canal and neural foramen within the lumbar spine are patent. A left renal cyst is noted. IMPRESSION: 1. No evidence of metastatic disease within the lumbar spine. 2. 9 mm metastasis along the inferior endplate of the T12 vertebral body. 3. No intracanalicular mass or fluid collection within the lumbar canal. 4. Mild multilevel degenerative changes within the lumbar spine. Electronically signed by: Daniel Cali M.D. 01/09/2017 6:55 AM Dictated Date/Time: 01/09/2017 6:48 AM
--- NOTE | 2017-01-09 07:06 | DIAGNOSTIC IMAGING REPORT ---
MRI OF THE THORACIC SPINE WITHOUT A WITH GADOLINIUM CLINICAL HISTORY: Back pain. Right breast mass. Abnormal chest CT with suspected metastasis with possible epidural spread COMPARISON STUDY: Conventional radiographic study dated 01/08/2017, CT scan dated 12/11/2016 FINDINGS: Imaging was performed in the sagittal and axial planes, before and after the administration of 9 cc of intravenous Gadavist. There are areas of marrow replacement T4, T5, T6, and T12 levels. At the T5 level, there is involvement of the posterior elements. There is epidural tumor spread with moderate spinal canal narrowing at the T4 and T5 levels. There is also narrowing of the right T4-5 neural foramen There is a small central disc protrusion at the T6-7 level. No intrinsic thoracic cord lesions are visualized. IMPRESSION: 1. Areas of marrow replacement the T4, T5, T6 levels, consistent with metastatic disease. There is also a focus of marrow edema/replacement involving the anterior inferior T12 endplate. This focus could either be degenerative or related to an additional focus of metastatic disease. 2. Epidural tumor spread at the T4-T5 levels with moderate secondary spinal canal narrowing. There is also narrowing of the right T4-5 neural foramen Electronically signed by: Julien Ward M.D. 01/09/2017 7:05 AM Dictated Date/Time: 01/09/2017 6:55 AM
[2017-01-09 08:01] VITALS: BP 143/78; PULSE 67; TEMP 36.9; O2SAT 94
--- NOTE | 2017-01-09 10:14 | Surgery Consultation ---
Consultation Date of Consultation: Jan 09, 2017. Attending Physician: Lyla Elizabeth MD Reason for Consultation: Ulcerative Right Breast Mass (Katja Pappas PA-C) History of Present Illness Zeina is a very pleasant 61 year-old female who presented to emergency department yesterday with complaint of back pain that has been persistent for the past couple of months. States the back pain was a dull aching pain however over the weekend noticed increasing pain in to which she did not do much movement over the weekend. Denies pain as sharp and stabbing. Denies of any numbness or tingling. States she also has had a ulceration mass on her right breast for at least a few months. States she fist noticed it as a small nodule under the skin and then stated it eroded through the breast fairly quickly. It has been draining for the past couple of months. States she had a mammogram when she was in her 40's in which she was referred to Dr. 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 Zeina has not been to a doctor in many years. States she has had a lot of other issues with family members and did not get herself taken care of. Zeina denies of any family history of breast cancer in immediate family. Has three sisters and no children. Denies of any family history of ovarian or pancreatic cancer. Menarche at age 12 and early menopause at age 34. Did take Premarin for 10 years and then stopped. No other hormonal replacement therapy. No previous breast biopsies. Denies of any fever, chills, night sweats, unintentional weight loss. States the breast mass is painful when touched or bumped otherwise denies breast pain. Has not had a recent mammogram. (Katja Pappas PA-C) Past Medical/Surgical History Medical Problems: (1) Metastatic breast cancer Status: Acute (2) Thoracic back pain Status: Acute (Katja Pappas PA-C) Family History Diabetes mellitus FH: thyroid disease Hypertension (Katja Pappas PA-C) Diabetes mellitus FH: thyroid disease Hypertension (Sameera Rosenbaum MD) Social History Smoking Status: Current Every Day Smoker Drug Use: none Marital Status: Housing Status: lives with family Occupation Status: employed (Katja Pappas PA-C) Allergies Coded Allergies: Codeine (Verified Allergy, Mild, "DRUNK FEELING", 01/08/17) Home Medications Scheduled Calcium Carbonate-Vitamin D (Calcium + D), 1 TAB PO DAILY Current Inpatient Medications Current Inpatient Medications Medications (Trade) Dose Ordered Sig/Elida Route Start Time Stop Time Status Last Admin Dose Admin Ioversol (Optiray 320) 100 ml UD PRN IV 01/08/17 10:15 01/12/17 10:14 Acetaminophen (Tylenol Tab) 650 mg Q4H PRN PO 01/08/17 15:00 02/07/17 14:59 01/08/17 17:25 650 MG Al Hydrox/Mg Hydrox/Simethicone (Maalox Max Susp) 15 ml Q4H PRN PO 01/08/17 15:00 02/07/17 14:59 Magnesium Hydroxide (Milk Of Magnesia Susp) 30 ml Q6H PRN PO 01/08/17 15:00 02/07/17 14:59 Ondansetron HCl (Zofran Inj) 4 mg Q6H PRN IV 01/08/17 15:00 02/07/17 14:59 Morphine Sulfate (MoRPHine SULFATE INJ) 2 mg Q4 PRN IV 01/08/17 15:00 01/22/17 14:59 Hydralazine HCl 10 mg 10 mg Q6H PRN IV. 01/08/17 15:00 02/07/17 14:59 Dexamethasone Sodium Phosphate/ Syringe (Decadron Inj/ Syringe) 1 ml @ 1 mls/min Q8H IV 01/08/17 20:00 02/07/17 19:59 01/09/17 04:25 1 MLS/MIN Gadobutrol (Gadavist) 9 mmol UD PRN IV 01/09/17 02:30 01/13/17 02:29 (Katja Pappas, BRENTC) Review of Systems Constitutional: No chills, No fever, No sweats, No weight loss ENT: No hearing loss Respiratory: No shortness of breath Cardiovascular: No chest pain Abdomen: No constipation, No diarrhea, No nausea, No pain, No vomiting Musculoskeletal: + problem reported (back pain for a few months) Hematologic / Lymphatic: No night sweats, No swollen lymph nodes Integumentary: + problem reported (ulcerated lesion on the breast with drainage occasional, slight pain to the touch) (Katja Pappas ., PA-C) Physical Exam Date Time Temp Pulse Resp B/P Pulse Ox O2 Delivery O2 Flow Rate FiO2 01/09/17 09:09 Room Air 01/09/17 08:01 36.9 67 16 143/78 94 01/09/17 04:29 37.3 75 18 132/69 93 Room Air 01/09/17 01:09 37.1 66 20 147/75 92 Room Air 01/09/17 00:00 Room Air 01/08/17 19:12 36.9 66 18 165/87 91 Room Air 01/08/17 17:56 37.0 63 20 161/84 92 Room Air 01/08/17 17:15 37.0 63 20 161/84 92 Room Air 01/08/17 16:15 36.9 67 16 150/56 91 01/08/17 15:13 Nasal Cannula 2.0 01/08/17 14:59 67 16 150/56 91 Room Air 01/08/17 13:53 71 01/08/17 13:23 67 20 178/93 95 Room Air 01/08/17 11:52 71 16 119/52 93 Room Air Right Breast: There is a 5 cm ulcerated mass of the right breast, nipple is not present. There is no drainage on palpation. No other palpable breast mass of the right breast. no peau d'orange, dimpling, or retractions Left Breast: Slight thickening of the upper outer quadrant of the left breast, no palpable mass, no peau d'orange, skin retractions, or dimpling. Nipple everted, no nipple discharge. General Appearance: WD/WN, no apparent distress Head: normocephalic, atraumatic Eyes: sclerae normal Neck: trachea midline Respiratory/Chest: no respiratory distress, no accessory muscle use Cardiovascular: regular rate, rhythm Abdomen/GI: soft Neurologic/Psych: alert, normal mood/affect, oriented x 3 Lymphatic: + axillary node abnormality (right axillary lymph node palpable) (Katja Pappas ., PA-C) Laboratory Results Last 24 Hours Test 01/09/17 05:40 White Blood Count 4.91 K/uL Red Blood Count 4.42 M/uL Hemoglobin 13.8 g/dL Hematocrit 39.2 % Mean Corpuscular Volume 88.7 fL Mean Corpuscular Hemoglobin 31.2 pg Mean Corpuscular Hemoglobin Concent 35.2 g/dl Platelet Count 214 K/uL Mean Platelet Volume 10.4 fL Neutrophils (%) (Auto) 75.9 % Lymphocytes (%) (Auto) 20.2 % Monocytes (%) (Auto) 3.5 % Eosinophils (%) (Auto) 0.0 % Basophils (%) (Auto) 0.0 % Neutrophils # (Auto) 3.73 K/uL Lymphocytes # (Auto) 0.99 K/uL Monocytes # (Auto) 0.17 K/uL Eosinophils # (Auto) 0.00 K/uL Basophils # (Auto) 0.00 K/uL RDW Standard Deviation 39.8 fL RDW Coefficient of Variation 12.3 % Immature Granulocyte % (Auto) 0.4 % Immature Granulocyte # (Auto) 0.02 K/uL Prothrombin Time 10.8 SECONDS Prothromb Time International Ratio 1.0 Sodium Level 141 mmol/L Potassium Level 3.7 mmol/L Chloride Level 103 mmol/L Carbon Dioxide Level 28 mmol/L Anion Gap 10.0 mmol/L Blood Urea Nitrogen 15 mg/dl Creatinine 0.60 mg/dl Est Creatinine Clear Calc Drug Dose 107.5 ml/min Estimated GFR () 113.2 Estimated GFR (Non- 97.7 BUN/Creatinine Ratio 25.7 Random Glucose 138 mg/dl Calcium Level 9.5 mg/dl Magnesium Level 1.9 mg/dl CT ANGIOGRAPHY OF THE CHEST, PULMONARY EMBOLUS PROTOCOL CLINICAL HISTORY: Back pain. Elevated d-dimer. Right breast mass. COMPARISON STUDY: Chest radiograph August 02, 2012. TECHNIQUE: Following IV administration of 92 mL of Optiray-320, helical axial images of the chest were obtained utilizing the pulmonary embolus protocol. Maximal intensity projections and sagittal and coronal reformats were viewed on an independent 3D workstation. IV contrast was administered without complication. CT DOSE: 672.48 mGy.cm FINDINGS: No pulmonary emboli are identified. There is no evidence of thoracic aortic dissection. The heart is mildly enlarged. There is extensive coronary artery calcification. No enlarged mediastinal or hilar lymph nodes are present. Note is made of an enlarged right axillary lymph node that measures 2.4 x 1.8 cm. There is an ulcerated periareolar right breast mass that measures approximately 5.8 x 4.3 cm. There is associated skin thickening. There is no left axillary lymphadenopathy. Central airways are patent. Two right middle lobe nodules measure up to 6 mm. Note is made of a 4 mm left upper lobe nodule shown on image 233 of 293. There is mosaic attenuation within the lungs. There is no consolidation to suggest pneumonia. There is a 1.5 cm lytic lesion within the posterior left ninth rib. Numerous lytic lesions are noted within visualized skeletal structures, including lesions within the T4, T5 and T6 vertebra with mild loss of height of the T5 vertebral body. There is extensive epidural spread of tumor at these levels, which is suboptimally assessed by CT. There is resultant central canal narrowing, likely moderate to severe in degree. There is possible cord compression. Multiple neural foramen are narrowed by the tumor. The tumor extends into the posterior elements. Upper abdomen is unremarkable with the exception of fatty infiltration of the liver. IMPRESSION: 1. No pulmonary emboli identified. 2. 5.8 cm right subareolar ulcerated breast mass highly suggestive of breast malignancy. Enlarged right axillary lymph node suggestive of rosio spread of disease. 3. Numerous lytic skeletal lesions within the thorax, including T4, T5 and T6 vertebral metastases with pathologic fracture of T5 and impending fracture of T4. Extensive epidural spread of tumor results in moderate to severe narrowing of the central canal which is suboptimally assessed by CT. Possible cord compression. An MRI of the thoracic spine could be obtained with and without contrast. These findings are highly suggestive of a primary right breast malignancy with skeletal metastases. 4. Several small indeterminate pulmonary nodules. MRI OF THE THORACIC SPINE WITHOUT A WITH GADOLINIUM CLINICAL HISTORY: Back pain. Right breast mass. Abnormal chest CT with suspected metastasis with possible epidural spread COMPARISON STUDY: Conventional radiographic study dated 01/08/2017, CT scan dated 12/11/2016 FINDINGS: Imaging was performed in the sagittal and axial planes, before and after the administration of 9 cc of intravenous Gadavist. There are areas of marrow replacement T4, T5, T6, and T12 levels. At the T5 level, there is involvement of the posterior elements. There is epidural tumor spread with moderate spinal canal narrowing at the T4 and T5 levels. There is also narrowing of the right T4-5 neural foramen There is a small central disc protrusion at the T6-7 level. No intrinsic thoracic cord lesions are visualized. IMPRESSION: 1. Areas of marrow replacement the T4, T5, T6 levels, consistent with metastatic disease. There is also a focus of marrow edema/replacement involving the anterior inferior T12 endplate. This focus could either be degenerative or related to an additional focus of metastatic disease. 2. Epidural tumor spread at the T4-T5 levels with moderate secondary spinal canal narrowing. There is also narrowing of the right T4-5 neural foramen MRI OF THE LUMBAR SPINE WITH AND WITHOUT CONTRAST CLINICAL HISTORY: Right breast mass. Evaluate for metastatic disease. COMPARISON STUDY: No previous studies for comparison. TECHNIQUE: Utilizing a 1.5 [place] magnet and dedicated coil, multiplanar, multiecho imaging of the lumbar spine was performed before and after uneventful IV administration of 9 mL of Gadavist. FINDINGS: For purposes of numbering on this exam, the L5-S1 disc space is assigned to axial image 27 of 30. Alignment of the lumbar spine is anatomic. A 9 mm T1 hypointense, T2 hypointense focus along anterior aspect of the inferior endplate of T12 likely reflects a metastasis. This is shown on the MRI of the thoracic spine which will be reported separately. There is no intracanalicular mass or fluid collection within the lumbar canal. Conus terminates at the upper L2 level. Paravertebral soft tissues are unremarkable. No marrow replacement is identified within the lumbar spine. Mild multilevel degenerative changes are present with minimal disc bulge at the L3-L4 level. Central canal and neural foramen within the lumbar spine are patent. A left renal cyst is noted. IMPRESSION: 1. No evidence of metastatic disease within the lumbar spine. 2. 9 mm metastasis along the inferior endplate of the T12 vertebral body. 3. No intracanalicular mass or fluid collection within the lumbar canal. 4. Mild multilevel degenerative changes within the lumbar spine. MRI OF THE CERVICAL SPINE WITH AND WITHOUT CONTRAST CLINICAL HISTORY: Right breast mass. Evaluate for metastatic disease. COMPARISON: None. TECHNIQUE: Utilizing a 1.5 [place] magnet and dedicated coil, multiplanar, multiecho imaging of the cervical spine was performed before and after intravenous administration of 9 of Gadavist. FINDINGS: Alignment of the cervical spine is anatomic. Vertebral body heights are maintained. There is no marrow replacement. There is no intracanalicular mass or fluid collection. Visualized portions of the intracranial contents are unremarkable. Cervical cord signal and caliber are normal. Paravertebral soft tissues are unremarkable. C2-C3: The central canal and neural foramen are patent. C3-C4: Central canal and neural foramen are patent. C4-C5: There is minimal narrowing of the central canal. There is mild narrowing of the right neural foramen. C5-C6: Posterior disc osteophyte complex with a central disc protrusion is noted. This indents the ventral aspect of the cord. This results in moderate to severe narrowing of the central canal. There is no neural foraminal narrowing. C6-C7: Central disc protrusion is present. There is mild narrowing of the central canal. The neural foramen are patent. C7-T1: Central canal and neural foramen are patent. IMPRESSION: 1. No evidence of metastatic disease within the cervical spine. 2. Normal cervical cord signal and caliber. 3. Moderate to severe central canal stenosis at C5-C6 due to posterior disc osteophyte complex with a central disc protrusion which indents the ventral aspect of the cord. (Katja Pappas ., PA-C) Assessment & Plan Ulcerated Right Breast Mass -Ct of the chest showing 5.8 x 4.3 cm ulcerated breast mass, sanjuanita-areolar as well as numerous lytic skeletal lesions within the thorax, including T4, T5 and T6 vertebral metastases with pathologic fracture of T5 and impending fracture of T4. Concerning for primary breast malignancy with metastasis to the thoracic spine. - Enlarged Right axillary lymph node - Cervical and Lumbar spine MRI showing no lytic lesions - All vital signs stable - H&H within normal limits Plan: Will need PET/CT scan to further evaluate extent of Metastasis as well a mammogram and ultrasound with biopsy. Dr. Rosenbaum to see patient and coordinate care with breast center and radiation and medical oncologists. Continue management established by medicine Continue pain management prn (Katja Pappas ., PA-C) Pt seen and examined. Imaging reviewed. Has osseous metastasis, large right breast mass eroding into nipple with axillary adenopathy, small indeterminate pulmonary nodules. PET not done. No breast imaging. On exam, near 6-8 cm central breast mass right side with erosion and replacement of nipple/ areolar complex. No active infection. No erythema. 2.5 cm mobile axillary node right side. Left breast/ axilla OK. Discussed plan - given metastatic disease, I would recommend initial treatment with chemotherapy and then reassessment of response. Consider pet for better eval of pulmonary nodules. Needs tissue diagnosis - this would be best obtained with core/ clip placement so that node/ mass still identifiable after chemo. I am awaiting a call back from breast center to try and get her in quickly for imaging and tissue diagnosis. Discussed benefit of chemo upfront - may potentially allow for less surgery (and therefore less morbidity) in axilla, will allow for reassessment of her disease response/ progression to see if salvage mastectomy is indicated. Explained that the main risk is infection of the wound, in which case, she would need chemo held and salvage mastectomy potentially sooner. This was discussed with Dr. Cespedes who is going to start her palliative radiation therapy for her spine. Message left for Dr. Nguyen to go over the plan and see his opinion. All questions answered. She understands she would need to be discharged to have the breast imaging / biopsy. Dr. Cespedes is OK with her discharge and continuing radiation as outpatient. Her pain is better controlled and she feels she would be OK to go home once a final plan is set. (Sameera Rosenbaum MD)
--- NOTE | 2017-01-09 10:47 | ONCOLOGY CONSULTATION ---
DATE OF CONSULTATION: 01/09/2017 REASON FOR CONSULTATION: Probable right breast cancer. HISTORY OF PRESENT ILLNESS: Zeina Hudson is a pleasant 61-year-old postmenopausal female who presented to the Emergency Department complaining of mid-thoracic pain she noticed over the past several months. Apparently over the preceding weekend her pain intensified and she had been using nonsteroidal anti-inflammatories with minimal relief. She denies any associated numbness, tingling or generalized weakness. Zeina also reports presence of a right-sided breast lesion that she has been observing for several months. She estimates at least 1 year where she started noticing changes particularly inverted nipple. She states that it started as a tender nodule and then has developed into a completely effaced nipple complex and is now ulcerated and draining foul smelling fluid. She readily admits she has not undergone a mammogram or even visited docs over the past several years. She appears to have a phobia to needles and procedures. In the Emergency Department, the CT scan of the chest confirmed a malignant appearing lesion in the right breast with possible right-sided axillary lymphadenopathy. Bony lesions, particularly T4, T5 and T6 are noted with a compression fracture at T4 and mass eroding into the epidural space. The patient was to be admitted for further workup. Dr. Pankaj Mckeon is on consult and I believe a biopsy of the right breast is pending. PAST MEDICAL HISTORY: She has no known medical problems. Again has not seen a physician in many years. She went into early menopause at age 34 and was treated with Premarin for hot flashes for approximately 10 years. PAST SURGICAL HISTORY: Includes dilation and curettage. MEDICATIONS: Prior to admission include calcium carbonate with vitamin D 1 tablet p.o. every day. ALLERGIES: CODEINE. FAMILY HISTORY: Father in his 70s from diabetes mellitus. Mother of natural causes at age 85. Sister suffers from hyperthyroidism. SOCIAL HISTORY: The patient is an everyday smoker, half pack a day. She admits to multiple years, but is nonspecific. 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 Negative for alcohol or illicit drug use. REVIEW OF SYSTEMS: Most notably for mid-thoracic back pain but otherwise negative for weight loss, anorexia, fevers, chills or night sweats. SKIN: No rashes or lesions. No history of dermatosis. HEENT: Negative for headaches, lightheadedness or dizziness. No visual or hearing deficits. No sinus symptoms, sore throat or dysphagia. LYMPH: Palpable right axillary lymphadenopathy. CARDIAC: No history of coronary artery disease, no angina or palpitations. PULMONARY: No history of COPD. No shortness of breath, dyspnea or orthopnea. No cough or hemoptysis. GASTROINTESTINAL: Negative for abdominal pain, nausea, vomiting, diarrhea or constipation, hematochezia or melena in stools. GENITOURINARY: No hematuria, dysuria. Actually positive for urinary incontinence. She describes as a weak bladder. MUSCULOSKELETAL: As per HPI most notably for mid-thoracic back pain and CT scan findings consistent with bony metastatic disease. ENDOCRINE: Negative for diabetes or thyroid disease. NEUROLOGIC: Negative for seizure, stroke, or migraine headache. HEMATOLOGIC: Negative for anemia, thrombophilia or bleeding diathesis. PHYSICAL EXAMINATION: GENERAL: Very pleasant 61-year-old white female, awake, alert, conversant and appropriate, no acute distress. VITAL SIGNS: Temperature 36.9, pulse 67, respirations 16, blood pressure 143/78. SKIN: Warm, dry, noncyanotic without petechia, rash or ecchymosis. HEAD: Atraumatic, normocephalic. EYES: PERRLA, EOMI. Sclerae nonicteric. No conjunctival injection. Nares are patent without rhinorrhea or discharge. Throat is clear. Tongue is midline. Mucous membranes are moist. NECK: Supple without JVD or thyromegaly. LYMPH: Palpable right axillary lymphadenopathy at least 2 cm in diameter. HEART: Regular rate and rhythm. No clicks, rubs, murmurs or gallops. LUNGS: Clear to auscultation bilaterally. BREAST EXAMINATION: Palpable 7-8 cm mass involving the entire nipple complex. Nipple is completely defaced, ulcerated and draining. ABDOMEN: Soft, nontender, nondistended without palpable hepatosplenomegaly. No rigidity or guarding. Bowel sounds are active. EXTREMITIES: Musculoskeletal strength and pulses are equal. No clubbing, cyanosis or edema. NEUROLOGICALLY: She is awake, alert and oriented x3. Cranial nerves II through XII are intact. No gross motor or sensory deficits are noted. LABORATORY DATA: WBC count 49.10, hemoglobin 13.8, platelet count 214,000. Sodium 141, potassium 3.7, chloride 103, carbon dioxide 28, BUN 15, creatinine 0.6. IMAGING: MRI of the thoracic spine performed on 01/08/2017. There is marrow displacement, T4, T5, T6 consistent with metastatic disease, also marrow edema/replacement in the anterior inferior portion of the T12 endplate, epidural tumor spread at T4 and T5 with moderate secondary spinal canal narrowing. MRI of the cervical spine findings consistent with emerging spinal stenosis at C2 through C5. CTA of the chest 5.8 cm subareolar ulcerated breast mass suggestive of breast malignancy, enlarged right axillary lymph node again suggestive of rosio spread of disease. Numerous lytic skeletal lesions again including T4, T5 and T6 with pathologic fracture of T5 and impending fracture of T4. Extensive epidural spread of tumor also noted within the central canal. IMPRESSION: Probable metastatic breast cancer. PLAN: Dr. Pankaj Mckeon consulted medical oncology to assist in the care of this postmenopausal 61-year-old female patient with probable breast cancer. Biopsy has not been performed and plans are underway to have her undergo core biopsy later on today. By physical examination, the suspected mass is quite large and again nipple is completely effaced consistent with breast malignancy. The bony findings are very concerning, particularly the impending fractures at both T4 and T5 and epidural extension. Will ask radiation oncology to consider palliative radiation to the thoracic spine, would also ask orthopedics to consider kyphoplasty. As for long-term treatment plan this lady will most likely require chemotherapy. ER, DC and HER-2/alena status have yet to be determined, which is essential in guiding us to establish a therapeutic plan. I had a lengthy conversation with the patient and her at bedside. Clearly her spine needs to be managed first. I will plan to see Zeina as an outpatient to make formal recommendations regarding chemotherapy. Thank you very much for allowing me to participate in her care. I will continue to follow her periodically during her hospital stay. If you have any further questions or concerns, feel free to contact me at any time.
--- NOTE | 2017-01-09 11:16 | ORTHOPEDIC CONSULTATION ---
DATE OF CONSULTATION: 01/09/2017 DATE OF CONSULTATION: 01/09/2017. CHIEF COMPLAINT: Evaluate thoracic back pain and metastatic breast CA. HISTORY OF PRESENT ILLNESS: This is a 61-year-old female who presented to the Emergency Department mid back pain in the upper thoracic region. It has been present for a few months, progressed in severity, prompting evaluation in the ED. She reports she has had breast lesion in the right breast present for several months, has not been evaluated and work up in the ED was worrisome for a malignant lesion of the right breast. She had multiple metastatic lesions thoracic spine involving T4, T5 and T6 vertebral bodies, as well as T9 and 12. This study revealed marrow signal change most significantly in T4, T5 and T6. It appeared there was some soft tissue component extending behind the body of T5 with the PLL remaining intact, bilobed soft tissue extension on each side of the PLL in the anterior epidural space. There is some extension of the right T4-5 neural foramen. I believe there is some involvement of the right T5 pedicle and transverse process as well as the posterior elements in the pars and maybe even the lamina on the right side at the same level. There is no overt spinal cord compression. There is no signal change or myelomalacia. She denies balance problems, incontinence, retention, numbness or weakness in the lower extremities. Her pain has been much improved since admission without pain medication but she has been on parenteral steroids. MRI of the cervical spine did not reveal any bony metastasis with some typical degenerative changes, had significant stenosis. Lumbar spine MRI indicated T12 vertebral metastasis and mild degenerative changes. There is no significant collapse of the vertebral body of T4-T5 on the MRIs. PAST MEDICAL HISTORY: Unremarkable with a history of D&C. SOCIAL HISTORY: The patient is a smoker, and currently employed. ALLERGIES: ALLERGIC TO CODEINE. REVIEW OF SYSTEMS: Per the HPI. PHYSICAL EXAMINATION: The patient is a pleasant 61-year-old female who appears younger than stated age. She answers questions appropriately, was alert and comfortable. She was able to roll over in bed independently without discomfort, sit up without any difficulty. NEUROLOGIC EXAMINATION: Lower extremities revealed normal strength in mini motor testing in all motor groups. Intact sensation to light touch in all distributions and symmetrically diminished DTRs of the patella. She had no clonus. Downgoing Babinskis bilaterally. I did not have her ambulate, but she reports she has been ambulating comfortably in the hallway independently. ASSESSMENT: Newly diagnosed breast CA with widely metastatic spinal disease. PLAN: At this point, given dissemination of the spinal metastasis surgical resection is not a reasonable alternative. She is currently neurologically intact and is comfortable without bracing. The location of the spinal mets in the upper thoracic spine does make bracing a challenge as any normal TLSO would simply create greater stress at this region. While a Nilam brace could be considered they are poorly tolerated. As far as pain control it appears she is well managed at this time. She is not the best candidate for kyphoplasty of the pathological fracture of T5 due to bony destruction on CT and soft tissue extension through the posterior wall and right pedicle. The risk of cement extravasation would be increased and also this will be particularly challenging to do both due to the location in the upper thoracic spine making intraoperative radiographs more difficult to monitor for extravasation. Given that she has 3 level metastasis addressing one may increase the biomechanical stress on the other levels of metastasis. I think at this point consultation with oncology and radiation oncology would be prudent and I believe they have been consulted. I defer to their judgment for radiation therapy to the region. The risk of involution and subsequent collapse was reviewed. If she develops neurologic deterioration and the goal was to do resection and stabilization, referral to tertiary care due to the location and complexity necessary would be recommended. Thank you for the consultation. ELIZABETH
[2017-01-09 11:23] VITALS: BP 149/68; PULSE 74; TEMP 37.4; O2SAT 92
--- NOTE | 2017-01-09 15:04 | Radiation Oncology Consult ---
Radiation Oncology Consult Date / Reason Jan 09, 2017. We were asked to see Ms. Hudson for evaluation and discuss the role of palliative radiation following the finding of a right breast mass and evidence of metastatic disease to the thoracic spine with evidence of spinal cord impingement. Diagnosis (1) Breast mass Stage: IV (2) Thoracic back pain Stage: IV (3) Metastatic breast cancer Stage: IV History of Present Illness Ms. Hudson is a 61-year-old postmenopausal female without a family history of breast cancer. The patient was aware of a palpable right breast abnormality for at least a year longer. This started as a tender nodule and ultimately progressed to an ulcerating and draining mass involving the nipple areolar complex. The lesion was not painful but was tender. Patient was not being followed with screening mammograms and has not seen a physician for many years. Recently the patient noted the onset of upper mid thoracic pain that has been progressively more severe over the past several months. She noted an increase in the severity of the pain over the past weekend. She was taking ibuprofen without significant benefit. The pain was worse with standing but not entirely relieved by sitting or lying flat. The patient denied tingling or numbness of the lower extremity or weakness of the lower extremity. The patient presented to the emergency department where studies were performed. A CT scan of the chest revealed no pulmonary emboli or thoracic aortic dissection. There were no enlarged mediastinal or hilar lymph nodes present. There was an enlarged right axillary lymph node measuring 2.4 x 1.8 cm. There was also an ulcerated periareolar right breast mass measuring 5.8 x 4.3 cm with associated skin thickening. There was no left axillary lymphadenopathy. There were 2 right middle lobe nodules measuring up to 6 mm and a 4 mm left upper lobe nodule. There was a 1.5 cm lytic lesion seen within the posterior left ninth rib and numerous lytic lesions visualized within the skeletal structures. This included lesions within T4, T5 and T6 vertebrae with mild loss of height of the T5 vertebral body. There was extensive epidural spread of tumor at these levels which was suboptimally assessed by CT scan. This resulted in central canal narrowing likely moderate to severe in degree. There was possible cord compression. Multiple neural foramen were narrowed by tumor. Tumor extends into the posterior elements. There was no evidence of liver metastasis appreciated. MRI of the cervical and lumbar vertebral body showed some degenerative changes but no evidence of metastatic disease. MRI of the thoracic spine however revealed areas of marrow replacement involving the T4, T5 and T6 levels consistent with metastatic disease. There was also a focus of marrow edema/ replacement involving the anterior inferior T12 endplate. This focus could either be degenerative or related to an additional focus of metastatic disease. Epidural tumor spread was noted at the T4-T5 levels with moderate secondary spinal canal narrowing. There was also narrowing of the right T4-T5 neural foramen. Patient was seen in referral by Dr. Pankaj Mckeon for consideration of tissue diagnosis or treatment options. The patient was also arranged to be seen by Dr. Jonah Nguyen for medical oncology evaluation. They discussed the need to obtain tissue diagnosis to better define systemic treatment options in light of obvious metastatic disease. Also the ER/PA and HER-2/alena status are critical to deciding treatment options. Dr. Nguyen suggested an orthopedic consult to consider possible kyphoplasty to the T5 vertebral body. He felt the patient was not the best candidate for kyphoplasty of the pathologic fracture T5 due to the bony destruction seen on CT scan and soft tissue extension to the posterior wall and right pedicle. The recommendation was for consideration of radiation therapy referral. It is for that reason we were called to see the patient today. Pacemaker Hx Pacemaker: No Social History Smoking Status: Current Every Day Smoker Hx Tobacco Use In Past Year?: Yes Estimated Cigarettes Per Day: 10 Do You Dip or Chew Tobacco: No Hx Alcohol Use: No Hx Substance Use : No Allergies Coded Allergies: Codeine (Verified Allergy, Mild, "DRUNK FEELING", 01/08/17) Home Medications Scheduled Calcium Carbonate-Vitamin D (Calcium + D), 1 TAB PO DAILY Review of Systems Extremities: Within Normal Limits: Yes Swelling in Legs: No Hx Deep Vein Thrombosis: No Pain in Legs while Walking: No Head: Headaches: No Eyes: Within Normal Limits: Yes Ear/Hearing: Ear Side: Bilateral Hearing Ability: Hard of Hearing Hearing Aid: None Gastrointestinal: Gastrointestinal: WNL Edema: Present?: No Respiratory: Symptoms: WNL Psychological: Symptoms: Calm Skin: Within Normal Limits: No Pain Management Side: Left (the patient has had complaint of pain both in the right and left side of the vertebral body in the upper mid back region.) Pain Location: Back (the patient's pain is variable and at times midline but other times can be radiated around the left or the right chest wall.) Patient Preferred Pain Scale: 0 - 10 (the patient does not use the term pain as it is not sharp but does describe it at times moderate to severe that is not controlled by ibuprofen.) Initial Pain Intensity: 0.0 Pain Description: Dull, Radiating Pain Management Plan We plan to treat the patient with palliative radiation to include the T4 through T6 vertebral body. The patient will be started on appropriate pain medications and monitored for response and pain medication adjustment. Physical Exam Height: 5 (Feet) 4.00 (Inches) 162.6 (Centimeters) 1.6256 (Meters) Weight: 205 (Pounds) 0.4 (Ounces) 93.000 (Kilograms) 00201.000 (Grams) Date Time Temp Pulse Resp B/P Pulse Ox O2 Delivery O2 Flow Rate FiO2 01/09/17 11:23 37.4 74 20 149/68 92 Room Air 01/09/17 09:09 Room Air 01/09/17 08:01 36.9 67 16 143/78 94 01/09/17 04:29 37.3 75 18 132/69 93 Room Air 01/09/17 01:09 37.1 66 20 147/75 92 Room Air 01/09/17 00:00 Room Air 01/08/17 19:12 36.9 66 18 165/87 91 Room Air 01/08/17 17:56 37.0 63 20 161/84 92 Room Air 01/08/17 17:15 37.0 63 20 161/84 92 Room Air 01/08/17 16:15 36.9 67 16 150/56 91 01/08/17 15:13 Nasal Cannula 2.0 01/08/17 14:59 67 16 150/56 91 Room Air General Appearance: WD/WN, no apparent distress Head: normocephalic, atraumatic Eyes: normal inspection, EOMI ENT: normal ENT inspection Neck: supple, no adenopathy, thyroid normal Breast: The left breast is without palpable masses or skin changes. The right breast reveals a large mass measuring 6-8 cm involving the nipple areolar complex with ulceration. The lesion is mildly tender and mobile. There is also palpable lymph node in the right axillary tail measuring at least 2 cm. 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 Right breast mass. Abnormal chest CT with suspected metastasis with possible epidural spread COMPARISON STUDY: Conventional radiographic study dated 01/08/2017, CT scan dated 12/11/2016 FINDINGS: Imaging was performed in the sagittal and axial planes, before and after the administration of 9 cc of intravenous Gadavist. There are areas of marrow replacement T4, T5, T6, and T12 levels. At the T5 level, there is involvement of the posterior elements. There is epidural tumor spread with moderate spinal canal narrowing at the T4 and T5 levels. There is also narrowing of the right T4-5 neural foramen There is a small central disc protrusion at the T6-7 level. No intrinsic thoracic cord lesions are visualized. IMPRESSION: 1. Areas of marrow replacement the T4, T5, T6 levels, consistent with metastatic disease. There is also a focus of marrow edema/replacement involving the anterior inferior T12 endplate. This focus could either be degenerative or related to an additional focus of metastatic disease. 2. Epidural tumor spread at the T4-T5 levels with moderate secondary spinal canal narrowing. There is also narrowing of the right T4-[address] ANGIOGRAPHY OF THE CHEST, PULMONARY EMBOLUS PROTOCOL CLINICAL HISTORY: Back pain. Elevated d-dimer. Right breast mass. COMPARISON STUDY: Chest radiograph August 02, 2012. TECHNIQUE: Following IV administration of 92 mL of Optiray-320, helical axial images of the chest were obtained utilizing the pulmonary embolus protocol. Maximal intensity projections and sagittal and coronal reformats were viewed on an independent 3D workstation. IV contrast was administered without complication. CT DOSE: 672.48 mGy.cm FINDINGS: No pulmonary emboli are identified. There is no evidence of thoracic aortic dissection. The heart is mildly enlarged. There is extensive coronary artery calcification. No enlarged mediastinal or hilar lymph nodes are present. Note is made of an enlarged right axillary lymph node that measures 2.4 x 1.8 cm. There is an ulcerated periareolar right breast mass that measures approximately 5.8 x 4.3 cm. There is associated skin thickening. There is no left axillary lymphadenopathy. Central airways are patent. Two right middle lobe nodules measure up to 6 mm. Note is made of a 4 mm left upper lobe nodule shown on image 233 of 293. There is mosaic attenuation within the lungs. There is no consolidation to suggest pneumonia. There is a 1.5 cm lytic lesion within the posterior left ninth rib. Numerous lytic lesions are noted within visualized skeletal structures, including lesions within the T4, T5 and T6 vertebra with mild loss of height of the T5 vertebral body. There is extensive epidural spread of tumor at these levels, which is suboptimally assessed by CT. There is resultant central canal narrowing, likely moderate to severe in degree. There is possible cord compression. Multiple neural foramen are narrowed by the tumor. The tumor extends into the posterior elements. Upper abdomen is unremarkable with the exception of fatty infiltration of the liver. IMPRESSION: 1. No pulmonary emboli identified. 2. 5.8 cm right subareolar ulcerated breast mass highly suggestive of breast malignancy. Enlarged right axillary lymph node suggestive of rosio spread of disease. 3. Numerous lytic skeletal lesions within the thorax, including T4, T5 and T6 vertebral metastases with pathologic fracture of T5 and impending fracture of T4. Extensive epidural spread of tumor results in moderate to severe narrowing of the central canal which is suboptimally assessed by CT. Possible cord compression. An MRI of the thoracic spine could be obtained with and without contrast. These findings are highly suggestive of a primary right breast malignancy with skeletal metastases. 4. Several small indeterminate pulmonary nodules. Treatment Options I discussed the following treatment options with Ms. Hudson. 1. Palliative radiation to the thoracic metastatic disease including T4 to T6. This would include the area of cord impingement at T4/5. 2. Diagnostic verification of breast cancer primary with biopsy scheduled for tomorrow. 3. Consideration of palliative mastectomy versus initiation of systemic chemotherapy pending completion of biopsy. Assessment & Recommendations In summary Ms. Hudson is a 61-year-old female who had not been seen by a physician for many years and has not been followed with mammograms. She is noted the presence of a right breast mass that was gradually enlarging over a period of a least a year or longer. Over the past several months mass has eroded through the skin involving the right nipple areolar complex with drainage. More recently she is also noted the onset of back pain which was moderate and at times or severe without significant relief from ibuprofen. Ultimately patient presented to the emergency department for control of her back pain. A CT scan confirmed a large breast mass measuring over 5 cm and a 2 cm right axillary lymph node. There were also some undefined small pulmonary nodules of uncertain significance. There was a 1.5 cm lytic lesion within the posterior left ninth rib as well as numerous lytic lesions visualized within the skeletal structures including lesions within T4, T5 and T6 with mild loss of height at T5 vertebral body. There was extensive epidural spread of tumor at these levels. An MRI of the cervical and lumbar vertebral body was unremarkable. MRI of the thoracic body confirmed marrow replacement of T4, 5 and 6. There was at the T5 level involvement of the posterior elements. There was epidural spread with moderate spinal canal narrowing at T4 and T5 levels. There was also narrowing of the right T4-5 neural foramen. There were no intrinsic thoracic cord lesions visualized. The patient's pain has improved with rest and medication. She denied any neurologic symptoms including no complaint of numbness or weakness of the lower extremity. Examination confirmed a large palpable right breast mass measuring 6 -8 cm involving and effacing the right nipple areolar complex with skin involvement. There was also a 2 cm axillary node located in the axillary tail. The patient was also seen by Dr. Rosenbaum. She is scheduled the patient for a biopsy of the lesion for tissue diagnosis. With that information a discussion about potential palliative mastectomy versus immediate initiation of systemic chemotherapy will be based on the histologic findings. I discussed with the patient and her the role of palliative radiation. The main concern is the evidence of epidural spread of disease that could potentially lead to the onset of neurologic symptoms if left untreated. I therefore recommended consideration of palliative radiation to include T4 through T6. I reviewed with them the process of CT simulation and discussed the probable treatment duration of 10 fractions. Although the patient is asymptomatic as far as neurologic symptoms I would recommend initiating treatment as soon as possible to prevent neurologic sequelae. I also discussed this with Dr. Jonah Nguyen her medical oncologist and Dr. Sameera Rosenbaum her surgeon. I discussed bring the patient down this afternoon for a CT simulation with the initiation of radiation following recovery from her biopsy possibly as early as tomorrow or no later than . I discussed the potential risks and side effects of a course of palliative radiation. A consent form will be reviewed with the patient. Once she has read and initialed the risks and signed the consent form and we will then proceed with the CT simulation. Thank you for allowing us to participate in the care of this patient. This chart was completed in part utilizing [employer] Voice Recognition software. Attempts were made to minimize the grammatical errors, random word insertions, pronoun errors and incomplete sentences. Any formal questions or concerns about the content, text or information contained within the body of this dictation should be directly addressed to the provider for clarification. Kevon Cespedes MD Department of Radiation Oncology [facility] and Tenisha Dietz [facility] Total Time In Consultation I spent 30 minutes in discussion and examination of this patient, 20 minutes reviewing her scans and her chart and in preparation of this document. CARLOS Copy To Sameera Rosenbaum MD; Rony Nguyen D.O.
[2017-01-09 15:33] VITALS: BP 150/79; PULSE 86; TEMP 37.1; O2SAT 91
--- NOTE | 2017-01-09 17:11 | Hospitalist Progress Note ---
Hospitalist Progress Note Date of Service Jan 09, 2017. Subjective Pt evaluation today including: conversation w/ patient, physical exam, chart review Voiding: no voiding problems Respiratory: No cough, No dyspnea at rest, No dyspnea on exertion, No hemoptysis, No problem reported, No see HPI, No shortness of breath, No sputum, No wheezing Cardiovascular: No PND, No chest pain, No claudication, No edema, No orthopnea, No palpitations, No problem reported, No see HPI Breast: + see HPI Neurologic: No balance problems, No memory loss, No numbness/tingling, No paralysis, No problem reported, No see HPI, No vertigo, No weakness Medications Medications (Trade) Dose Ordered Sig/Elida Route Start Time Stop Time Status Last Admin Dose Admin Dexamethasone Sodium Phosphate/ Syringe (Decadron Inj/ Syringe) 1 ml @ 1 mls/min Q8H IV 01/08/17 20:00 02/07/17 19:59 01/09/17 12:51 1 MLS/MIN Objective Vital Signs Date Time Temp Pulse Resp B/P Pulse Ox O2 Delivery O2 Flow Rate FiO2 01/09/17 15:33 37.1 86 20 150/79 91 Room Air 01/09/17 11:23 37.4 74 20 149/68 92 Room Air 01/09/17 09:09 Room Air 01/09/17 08:01 36.9 67 16 143/78 94 01/09/17 04:29 37.3 75 18 132/69 93 Room Air 01/09/17 01:09 37.1 66 20 147/75 92 Room Air 01/09/17 00:00 Room Air 01/08/17 19:12 36.9 66 18 165/87 91 Room Air 01/08/17 17:56 37.0 63 20 161/84 92 Room Air 01/08/17 17:15 37.0 63 20 161/84 92 Room Air Physical Exam General Appearance: WD/WN, no apparent distress Eyes: normal inspection, PERRL ENT: normal ENT inspection, hearing grossly normal, TMs normal, pharynx normal Neck: supple, no adenopathy, thyroid normal, no JVD Respiratory/Chest: chest non-tender, lungs clear, normal breath sounds, no respiratory distress Cardiovascular: regular rate, rhythm, no edema, no gallop, no JVD Abdomen: normal bowel sounds, non tender, soft, no organomegaly Extremities: normal range of motion, non-tender, normal inspection Neurologic/Psychiatric: slip tender II-XII nml as tested, no motor/sensory deficits Skin: normal color Laboratory Results Last 24 Hours Test 01/09/17 05:40 01/09/17 14:12 White Blood Count 4.91 K/uL Red Blood Count 4.42 M/uL Hemoglobin 13.8 g/dL Hematocrit 39.2 % Mean Corpuscular Volume 88.7 fL Mean Corpuscular Hemoglobin 31.2 pg Mean Corpuscular Hemoglobin Concent 35.2 g/dl Platelet Count 214 K/uL Mean Platelet Volume 10.4 fL Neutrophils (%) (Auto) 75.9 % Lymphocytes (%) (Auto) 20.2 % Monocytes (%) (Auto) 3.5 % Eosinophils (%) (Auto) 0.0 % Basophils (%) (Auto) 0.0 % Neutrophils # (Auto) 3.73 K/uL Lymphocytes # (Auto) 0.99 K/uL Monocytes # (Auto) 0.17 K/uL Eosinophils # (Auto) 0.00 K/uL Basophils # (Auto) 0.00 K/uL RDW Standard Deviation 39.8 fL RDW Coefficient of Variation 12.3 % Immature Granulocyte % (Auto) 0.4 % Immature Granulocyte # (Auto) 0.02 K/uL Prothrombin Time 10.8 SECONDS Prothromb Time International Ratio 1.0 Sodium Level 141 mmol/L Potassium Level 3.7 mmol/L Chloride Level 103 mmol/L Carbon Dioxide Level 28 mmol/L Anion Gap 10.0 mmol/L Blood Urea Nitrogen 15 mg/dl Creatinine 0.60 mg/dl Est Creatinine Clear Calc Drug Dose 107.5 ml/min Estimated GFR () 113.2 Estimated GFR (Non- 97.7 BUN/Creatinine Ratio 25.7 Random Glucose 138 mg/dl Calcium Level 9.5 mg/dl Magnesium Level 1.9 mg/dl Diagnostic Results 01/09/17 05:40 Red Blood Count 4.42, Mean Corpuscular Volume 88.7, Mean Corpuscular Hemoglobin 31.2, Mean Corpuscular Hemoglobin Concent 35.2, Mean Platelet Volume 10.4, Neutrophils (%) (Auto) 75.9, Lymphocytes (%) (Auto) 20.2, Monocytes (%) (Auto) 3.5, Eosinophils (%) (Auto) 0.0, Basophils (%) (Auto) 0.0, Neutrophils # (Auto) 3.73, Lymphocytes # (Auto) 0.99, Monocytes # (Auto) 0.17, Eosinophils # (Auto) 0.00, Basophils # (Auto) 0.00 01/09/17 05:40 Test 01/08/17 08:50 01/08/17 09:05 01/08/17 09:12 01/09/17 05:40 Urine Color YELLOW Urine Appearance CLEAR (CLEAR) Urine pH 7.5 (4.5-7.5) Urine Specific [place] 1.020 (1.000-1.030) Urine Protein NEG (NEG) Urine Glucose (UA) NEG (NEG) Urine Ketones TRACE (NEG) Urine Occult Blood NEG (NEG) Urine Nitrite NEG (NEG) Urine Bilirubin NEG (NEG) Urine Urobilinogen NEG (NEG) Urine Leukocyte Esterase NEG (NEG) Activated Partial Thromboplast Time 25.3 SECONDS (21.0-31.0) Partial Thromboplastin Ratio 1.0 Total Bilirubin 0.7 mg/dl (0.2-1) Aspartate Amino Transf (AST/SGOT) 42 U/L (15-37) Alanine Aminotransferase (ALT/SGPT) 48 U/L (12-78) Alkaline Phosphatase 104 U/L (45-117) Total Creatine Kinase 68 U/L (26-192) Creatine Kinase MB 0.6 ng/ml (0.5-3.6) Creatine Kinase MB Ratio 0.9 (0-3.0) Troponin I < 0.015 ng/ml (0-0.045) Total Protein 7.0 gm/dl (6.4-8.2) Albumin 3.8 gm/dl (3.4-5.0) Globulin 3.2 gm/dl (2.5-4.0) Albumin/Globulin Ratio 1.2 (0.9-2) Thyroid Stimulating Hormone (TSH) 1.100 uIu/ml (0.300-4.500) Bedside D-Dimer > 450 ng/mlFEU (0-450) White Blood Count 4.91 K/uL (4.8-10.8) Red Blood Count 4.42 M/uL (4.2-5.4) Hemoglobin 13.8 g/dL (12.0-16.0) Hematocrit 39.2 % (37-47) Mean Corpuscular Volume 88.7 fL (80-100) Mean Corpuscular Hemoglobin 31.2 pg (25-34) Mean Corpuscular Hemoglobin Concent 35.2 g/dl (32-36) Platelet Count 214 K/uL (130-400) Mean Platelet Volume 10.4 fL (7.4-10.4) Neutrophils (%) (Auto) 75.9 % Lymphocytes (%) (Auto) 20.2 % Monocytes (%) (Auto) 3.5 % Eosinophils (%) (Auto) 0.0 % Basophils (%) (Auto) 0.0 % Neutrophils # (Auto) 3.73 K/uL (1.4-6.5) Lymphocytes # (Auto) 0.99 K/uL (1.2-3.4) Monocytes # (Auto) 0.17 K/uL (0.11-0.59) Eosinophils # (Auto) 0.00 K/uL (0-0.5) Basophils # (Auto) 0.00 K/uL (0-0.2) RDW Standard Deviation 39.8 fL (36.4-46.3) RDW Coefficient of Variation 12.3 % (11.5-14.5) Immature Granulocyte % (Auto) 0.4 % Immature Granulocyte # (Auto) 0.02 K/uL (0.00-0.02) Prothrombin Time 10.8 SECONDS (9.0-12.0) Prothromb Time International Ratio 1.0 (0.9-1.1) Anion Gap 10.0 mmol/L (3-11) Est Creatinine Clear Calc Drug Dose 107.5 ml/min Estimated GFR () 113.2 Estimated GFR (Non- 97.7 BUN/Creatinine Ratio 25.7 (10-20) Calcium Level 9.5 mg/dl (8.5-10.1) Magnesium Level 1.9 mg/dl (1.8-2.4) Test 01/09/17 14:12 IMPRESSION: 1. No evidence of metastatic disease within the cervical spine. 2. Normal cervical cord signal and caliber. 3. Moderate to severe central canal stenosis at C5-C6 due to posterior disc osteophyte complex with a central disc protrusion which indents the ventral aspect of the cord. Electronically signed by: Daniel Cali M.D. 01/09/2017 6:48 AM IMPRESSION: 1. No evidence of metastatic disease within the lumbar spine. 2. 9 mm metastasis along the inferior endplate of the T12 vertebral body. 3. No intracanalicular mass or fluid collection within the lumbar canal. 4. Mild multilevel degenerative changes within the lumbar spine. Electronically signed by: Daniel Cali M.D. 01/09/2017 6:55 AM Dictated Date/Time: 01/09/2017 6:48 AM Dictated Date/Time: 01/09/2017 6:43 AM IMPRESSION: 1. Areas of marrow replacement the T4, T5, T6 levels, consistent with metastatic disease. There is also a focus of marrow edema/replacement involving the anterior inferior T12 endplate. This focus could either be degenerative or related to an additional focus of metastatic disease. 2. Epidural tumor spread at the T4-T5 levels with moderate secondary spinal canal narrowing. There is also narrowing of the right T4-5 neural foramen Electronically signed by: Julien Ward M.D. 01/09/2017 7:05 AM Dictated Date/Time: 01/09/2017 6:55 AM Assessment and Plan 61-year-old female presented to the emergency department with 2 separate complaints: Right breast mass and mid back pain. Both of them going on for quite some time, at least months. CT of the chest consistent with a right breast mass worrisome for breast malignancy with associated metastatic disease to the T-spine Presumed new dx Breast CA -Admit to oncology -General surgery consult for Breast bx -Orthopedic consult for metastatic thoracic dz-->erosion into epidural space -Neuro checks q 4h -Will need heme/onc/rad onc consults once bx are back -morphine 2 mg q 4 prn for back pain -NPO after midnight -MRI C/T/L spine to eval for further mets and to access spinal canal -Appreciate Rad.Onc opinion. Presumed HTN-BP elevated upon arrival. Improved now -Hydralazine 10 mg IV q 6 hr PRN DVT prophylaxis -Teds, SCDs -Consider initiating chemical means with heparin or Lovenox after biopsy CODE STATUS -LEVEL I FULL CODE
[2017-01-09] MEDS ORDERED: ALPRAZOLAM 0.25 MG TAB PO PRN (19:00)
[2017-01-09 19:25] VITALS: BP 155/80; PULSE 68; TEMP 37.1; O2SAT 94
[2017-01-09] MEDS ORDERED: HYDROmorphone INJ 1 MG/ML SYR IV PRN (20:00)
[2017-01-09] MEDS ORDERED: NURSING VERBAL MED ORDER ONE (20:30)
[2017-01-09] MEDS ORDERED: TRAMADOL HCL 50 MG TAB PO PRN (20:30)
[2017-01-10 00:33] VITALS: BP 134/75; PULSE 62; TEMP 37; O2SAT 93
[2017-01-10] MEDS: DEXAMETHASONE INJ 4 MG in SYRINGE 0 ML IV SCH ×2 (04:09→12:00)
[2017-01-10 04:10] VITALS: BP 144/85; PULSE 58; TEMP 36.9; O2SAT 95
[2017-01-10 07:28] LABS: COMPLETE YES; HEMATOCRIT 38.1 % (37-47); IG% 0.4 %; LYMPH ABS # 1.16 K/uL (1.2-3.4); MEAN CELL VOLUME 88.6 fL (80-100); MEAN CORPUSCULAR HEMOGLOBIN 31.9 pg (25-34); MEAN PLATELET VOLUME 10.7 fL (7.4-10.4); MONO % 4.9 %; NEUT % 79.7 %; PLATELET COUNT 235 K/uL (130-400); WHITE BLOOD COUNT 7.74 K/uL (4.8-10.8)
[2017-01-10 07:33] LABS: PROTHROMBIN TIME (PATIENT) 11.1 SECONDS (9.0-12.0)
[2017-01-10 07:44] VITALS: BP 140/83; PULSE 58; TEMP 36.9; O2SAT 90
[2017-01-10 07:59] LABS: BUN/CREATININE RATIO 28.9 (10-20); CALCIUM 9.5 mg/dl (8.5-10.1); CREATININE 0.66 mg/dl (0.60-1.20); POTASSIUM 3.7 mmol/L (3.5-5.1)
[2017-01-10 08:30] VITALS: O2SAT 90
--- NOTE | 2017-01-10 10:25 | Progress Note ---
Progress Note Date of Service Jan 10, 2017. Progress Note Reminded patient this am that she has an appointment at the breast center at 2: 30 pm today. Advised that she will need discharged prior. Patient will be contacted by our office to schedule placement of a-port. Patient's questions were answered Will be discharged by medicine service.
[2017-01-10] MEDS ORDERED: XNX25 PO (10:46)
[2017-01-10] MEDS ORDERED: ULT50X PO (10:46)
[2017-01-10] MEDS ORDERED: PRD50 PO (10:47)
--- NOTE | 2017-01-10 10:50 | Discharge Instructions ---
Discharge Instructions Date of Service Jan 10, 2017. Admission Reason for Admission: Breast Mass Discharge Discharge Diagnosis / Problem: Breast mass Discharge Goals Goal(s): Improve function Activity Recommendations Activity Limitations: resume your previous activity . Instructions / Follow-Up Instructions / Follow-Up follow up with Surgery, Radiation Oncology and Medical Oncology Current Hospital Diet Patient's current hospital diet: AHA Diet (Heart Healthy) Discharge Diet Recommended Diet: Regular Diet Pending Studies Studies pending at discharge: no Laboratory Results 01/10/17 06:40 Red Blood Count 4.30, Mean Corpuscular Volume 88.6, Mean Corpuscular Hemoglobin 31.9, Mean Corpuscular Hemoglobin Concent 36.0, Mean Platelet Volume 10.7, Neutrophils (%) (Auto) 79.7, Lymphocytes (%) (Auto) 15.0, Monocytes (%) (Auto) 4.9, Eosinophils (%) (Auto) 0.0, Basophils (%) (Auto) 0.0, Neutrophils # (Auto) 6.17, Lymphocytes # (Auto) 1.16, Monocytes # (Auto) 0.38, Eosinophils # (Auto) 0.00, Basophils # (Auto) 0.00 01/10/17 06:40 Test 01/09/17 14:12 01/10/17 06:40 White Blood Count 7.74 K/uL (4.8-10.8) Red Blood Count 4.30 M/uL (4.2-5.4) Hemoglobin 13.7 g/dL (12.0-16.0) Hematocrit 38.1 % (37-47) Mean Corpuscular Volume 88.6 fL (80-100) Mean Corpuscular Hemoglobin 31.9 pg (25-34) Mean Corpuscular Hemoglobin Concent 36.0 g/dl (32-36) Platelet Count 235 K/uL (130-400) Mean Platelet Volume 10.7 fL (7.4-10.4) Neutrophils (%) (Auto) 79.7 % Lymphocytes (%) (Auto) 15.0 % Monocytes (%) (Auto) 4.9 % Eosinophils (%) (Auto) 0.0 % Basophils (%) (Auto) 0.0 % Neutrophils # (Auto) 6.17 K/uL (1.4-6.5) Lymphocytes # (Auto) 1.16 K/uL (1.2-3.4) Monocytes # (Auto) 0.38 K/uL (0.11-0.59) Eosinophils # (Auto) 0.00 K/uL (0-0.5) Basophils # (Auto) 0.00 K/uL (0-0.2) RDW Standard Deviation 39.2 fL (36.4-46.3) RDW Coefficient of Variation 12.2 % (11.5-14.5) Immature Granulocyte % (Auto) 0.4 % Immature Granulocyte # (Auto) 0.03 K/uL (0.00-0.02) Prothrombin Time 11.1 SECONDS (9.0-12.0) Prothromb Time International Ratio 1.0 (0.9-1.1) Anion Gap 8.0 mmol/L (3-11) Est Creatinine Clear Calc Drug Dose 97.7 ml/min Estimated GFR () 109.7 Estimated GFR (Non- 94.7 BUN/Creatinine Ratio 28.9 (10-20) Calcium Level 9.5 mg/dl (8.5-10.1) Medical Emergencies . Who to Call and When: Medical Emergencies: If at any time you feel your situation is an emergency, please call 911 immediately. . Non-Emergent Contact Non-Emergency issues call your: Primary Care Provider . Past History Medical & Surgical History: (1) Metastatic breast cancer . "Provider Documentation" section prepared by Herman Hobson. VTE Core Measure Inpt VTE Proph given/why not?: aJye [facility] Drug Monitoring Program Search Results: patient reviewed within database
--- NOTE | 2017-01-10 10:56 | Discharge Summary ---
Discharge Summary Date of Service Jan 10, 2017. Discharge Summary Admission Date: Jan 08, 2017 at 14:54 Discharge Date: Jan 10, 2017 Discharge Disposition: Home Principal Diagnosis: Breast cancer Procedures: MRI OF THE THORACIC SPINE WITHOUT A WITH GADOLINIUM CLINICAL HISTORY: Back pain. Right breast mass. Abnormal chest CT with suspected metastasis with possible epidural spread COMPARISON STUDY: Conventional radiographic study dated 01/08/2017, CT scan dated 12/11/2016 FINDINGS: Imaging was performed in the sagittal and axial planes, before and after the administration of 9 cc of intravenous Gadavist. There are areas of marrow replacement T4, T5, T6, and T12 levels. At the T5 level, there is involvement of the posterior elements. There is epidural tumor spread with moderate spinal canal narrowing at the T4 and T5 levels. There is also narrowing of the right T4-5 neural foramen There is a small central disc protrusion at the T6-7 level. No intrinsic thoracic cord lesions are visualized. IMPRESSION: 1. Areas of marrow replacement the T4, T5, T6 levels, consistent with metastatic disease. There is also a focus of marrow edema/replacement involving the anterior inferior T12 endplate. This focus could either be degenerative or related to an additional focus of metastatic disease. 2. Epidural tumor spread at the T4-T5 levels with moderate secondary spinal canal narrowing. There is also narrowing of the right T4-5 neural foramen Electronically signed by: Julien Ward M.D. 01/09/2017 7:05 AM Dictated Date/Time: 01/09/2017 6:55 AM Consultations: Medical Oncology Radiation Oncology Orthopedics Medication Reconciliation New Medications: Alprazolam (Alprazolam) 0.25 Mg Tab 0.25 MG PO Q6H PRN for Anxiety/Agitation for 30 Days, #120 TAB Prednisone (Prednisone) 50 Mg Tab 50 MG PO DAILY for 14 Days, #14 TAB Tramadol HCl (Tramadol HCl) 50 Mg Tab 50 MG PO Q6H PRN for Pain for 30 Days, #120 TAB Continued Medications: Calcium Carbonate-Vitamin D (Calcium + D) 1 Tab Tab 1 TAB PO DAILY Discharge Exam General Appearance: no apparent distress Head: normocephalic Eyes: EOMI ENT: + pertinent finding (oral mucosa dry.) Neck: no JVD Respiratory/Chest: lungs clear, + pertinent finding (approximately 3 cm ulceration noted of the right breast over the nipple. Palpable mass approximate 4 cm in diameter underneath. No foul drainage noted. No odor noted. No masses noted in the left breast. No palpable lymphadenopathy noted.) Cardiovascular: regular rate, rhythm Abdomen/GI: normal bowel sounds, non tender, soft Extremities/Musculoskelatal: no calf tenderness, no pedal edema Neurologic/Psych: no motor/sensory deficits, normal reflexes Skin: warm/dry Hospital Course 61-year-old female presented to the emergency department with 2 separate complaints: Right breast mass and mid back pain. Both of them going on for quite some time, at least months. CT of the chest consistent with a right breast mass worrisome for breast malignancy with associated metastatic disease to the T-spine Presumed new dx Breast CA -Admit to oncology -General surgery consult for Breast bx -Orthopedic consult for metastatic thoracic dz-->erosion into epidural space -Neuro checks q 4h -Will need heme/onc/rad onc consults once bx are back -morphine 2 mg q 4 prn for back pain -NPO after midnight -MRI C/T/L spine to eval for further mets and to access spinal canal -Appreciate Rad.Onc opinion. Presumed HTN-BP elevated upon arrival. Improved now -Hydralazine 10 mg IV q 6 hr PRN DVT prophylaxis -Teds, SCDs -Consider initiating chemical means with heparin or Lovenox after biopsy CODE STATUS -LEVEL I FULL CODE Total Time Spent: Greater than 30 minutes This includes examination of the patient, discharge planning, medication reconciliation, and communication with other providers. Discharge Instructions Please refer to the electronic Patient Visit Report (Discharge Instructions) for additional information. Follow-Up Medical Oncology Radiation Oncology
[2017-01-10 11:19] VITALS: BP 132/89; PULSE 57; TEMP 36.8; O2SAT 94
[2017-01-10 11:37] VITALS: BP 132/89; PULSE 57; TEMP 36.8; O2SAT 94
[2017-01-22] MEDS ORDERED: MULTTAB83 PO (10:50)
[2017-01-22] MEDS ORDERED: PRED10TA PO (10:50)
[2017-02-21] MEDS ORDERED: ANAS1TAB6 PO (14:26)
[2017-02-21] MEDS ORDERED: BENZ100C84 PO (14:26)
[2017-07-17] MEDS ORDERED: WARF5TAB7 PO (11:27)
[2017-07-17] MEDS ORDERED: ENOX80IN SQ (11:28)
== END 2017-01-10 13:20 | disposition home or self-care (01) | DRG 598 ==
LOC: ENRESERVDT → ENRESERVTM → C.EDB 08:16 → C.4E 14:54
PROVIDERS: ADMIT Family Medicine; ATTEND Family Medicine
DX: C50.811 Malignant neoplasm of overlapping sites of right female breast (principal); C79.51 Secondary malignant neoplasm of bone; C79.49 Secondary malignant neoplasm of other parts of nervous system; C77.3 Secondary and unspecified malignant neoplasm of axilla and upper limb lymph nodes; M84.58XA Pathological fracture in neoplastic disease, other specified site, initial encounter for fracture; N61.1 Abscess of the breast and nipple; Z83.3 Family history of diabetes mellitus; F17.210 Nicotine dependence, cigarettes, uncomplicated; K76.0 Fatty (change of) liver, not elsewhere classified

== ENCOUNTER → 2017-01-10 | Outpatient (CLI) | payer BC ==
[~2017-01-10] MED LIST changes: +ANAS1TAB6 PO; +BENZ100C84 PO; +CEPH500C PO; +ENOX80IN SQ; -IBUP-103 PO; -MULT-506 PO; +MULTTAB83 PO; +PHEN-876 PO; +PRD50 PO; +PRED10TA PO; +ULT50X PO; +WARF5TAB7 PO; +XNX25 PO
--- NOTE | 2017-01-10 16:14 | Discharge Instructions ---
Discharge Instructions Procedure Procedure Date: Jan 10, 2017. Reason for visit: Right Breast Mass. Discharge Discharge Date: Jan 10, 2017. Discharge Diagnosis: post right breast mass and axillary lymph node biopsy Instructions Activity Recommendations: Additional Limitations (see below) Return to School/Work: no limitations Recommended Home Diet: No Limitations Provider Instructions: ACTIVITY RECOMMENDATIONS: * No lifting, pushing, pulling or exercising the affected side for three days. RETURN TO SCHOOL/WORK: * You may return to work/school after the procedure, but do not perform any strenuous activities for 24 to 48 hours. MEDICATIONS: * Tylenol (two 325 mg) every four to six hours if needed for mild pain (if not allergic to Tylenol). DIET: * Resume previous diet. SPECIAL CARE INSTRUCTIONS: * Keep biopsy site dry for 24 hours. May shower after 24 hours, but do not soak (bathe) incision. * May remove Tegaderm (plastic patch) tomorrow AFTER showering. * Leave the steri-strips on for one week. Allow the steri-strips to fall off by themselves. If not off after one week, you may remove them. You may place a Bandaid crosswise over the strips, if desired. * Apply ice 10 minutes on and 10 minutes off as needed. * Wear a bra at bedtime to sleep more comfortably for 2-3 days. * Your referring physician should have the results after approximately 5 to 7 business days. * Call for unusual bleeding, fever, drainage, etc or if you have any questions call [phone] during normal business hours or after hours call Dr Johnson, . FOLLOW UP VISIT: Follow-up with Referring Physician as scheduled. Allergies Coded Allergies: Codeine (Verified Adverse Reaction, Mild, "DRUNK FEELING", 01/09/17) Sonali Carbajal Recommendations: Call your doctor if: * Temperature above 101 degrees * Pain not relieved by pain medicine ordered * There is increased drainage or redness from any incision * You have any unanswered questions or concerns. Your Doctors Instructions noted above were prepared by provider Adriana Johnson. Patient Signature Section: Patient Instructions Signature Page Zeina Hudson Patient (or Guardian) Signature/Date: I have read and understand the instructions given to me by my caregivers. Caregiver/RN/Doctor Signature/Date: The above-named patient and/or guardian has received patient instructions on this date. + Original Patient Signature Page (only) stays with chart. Please make copy for patient.
--- NOTE | 2017-01-11 13:33 | MAMMOGRAPHY REPORT ---
ULTRASOUND GUIDED BIOPSY: 01/10/2017 CLINICAL HISTORY: Suspicious mass in the retroareolar right breast and suspicious right axillary lym ph node. Patient presents for ultrasound-guided core needle biopsy in the right breast and axilla. PATIENT CONSENT: The procedure, risks and benefits were discussed with the patient and informed writ ten consent was obtained both verbally and in writing. Specific risks to this procedure include: bl eeding, infection, puncture of adjacent structure, nontarget biopsy, sampling error, metal allergy a nd medication reaction. PROCEDURE DESCRIPTION: A time out was performed and the right breast/axilla were agreed as the sites of biopsy. The skin was prepped and draped in the usual sterile fashion. First the solid palpable spiculated and angular mass in the retroareolar right breast was identified and chosen as the targe t for biopsy. Subcutaneous and intraparenchymal 1% buffered lidocaine, with and without epinephrine, was administered as local anesthesia. A skin incision was made. Through the incision, 5 samples we re taken with a 14 gauge Achieve biopsy device. A ribbon-shaped metallic marker was placed at the bi opsy site. Hemostasis was achieved after manual compression. The patient tolerated the procedure wel l and there was no immediate complication. Then the abnormal right axillary lymph node was identified and targeted for biopsy. Additional subc utaneous and intraparenchymal 1% buffered lidocaine with and without epinephrine was administered. A small skin incision was made. Through the incision, 5 samples were obtained with a 14-gauge achie ve biopsy device. A metallic biopsy marker was placed within this lymph node. Hemostasis was achie chester after manual compression. The patient tolerated the procedure well and there was no immediate c onsultation. All of the samples were sent to the pathology department in appropriately labeled containers. Postprocedure right CC and MLO 2-D digital mammograms were obtained. There is a new ribbon-shaped m etallic biopsy marker within the mass in the anterior subareolar/retroareolar right breast. Another biopsy marker is seen within the biopsied lymph node in the right axilla. No significant postbiops y hematoma is identified at either site. IMPRESSION: ULTRASOUND GUIDED BIOPSY Status post ultrasound guided core needle biopsy of a suspicious mass in the anterior retroareolar/s ubareolar right breast, and biopsy of a morphologically abnormal right axillary lymph node. Biopsy marker clips were placed at each site. The patient will receive notification of the biopsy results from her referring physician. Adriana Johnson M.D. ay/:01/10/2017 21:40:35 [employer]: Dr. Adriana Johnson, [facility]
--- NOTE | 2017-01-11 13:36 | MAMMOGRAPHY REPORT ---
BILATERAL DIGITAL DIAGNOSTIC MAMMOGRAM TOMOSYNTHESIS WITH CAD AND TARGETED RIGHT ULTRASOUND: 01/11/20 17 CLINICAL HISTORY: 61-year-old woman with a visible ulcerating mass engulfing the right areola and ni pple and a palpable painful mass extending beneath the nipple. [facility] and was found to have vertebral metastases with spinal cord compression and also noted on the CT was a suspected right breast primary with suspicious right axillary lymph n ode. She presents for diagnostic workup. No prior mammograms are available. TECHNIQUE: Breast tomosynthesis in addition to standard 2D mammography was performed. Current study was also evaluated with a Computer Aided Detection (CAD) system. COMPARISON: No prior exams were available for comparison. BREAST COMPOSITION: The tissue of both breasts is heterogeneously dense, which may obscure small ma sses. FINDINGS: There is a large dense irregular and spiculated mass in the anterior right breast. A nor mal nipple is not identified. The mass measures approximately 5.8 x 5.3 x 6.0 cm and spicules exten d distal to the mass. Are a few benign rim calcifications within the right breast. No other obviou s mass or focal area of architectural distortion is identified in the right breast. There is enlarg ed right axillary lymph node measuring 2.2 x 1.4 cm. The margins of the lymph node are indistinct a nd almost spiculated, concerning for metastatic disease with extracapsular extension. No obvious mass or architectural distortion is identified in the left breast. There are benign rim calcifications and diffuse punctate microcalcifications throughout the left breast, most numerous in the medial aspect of the breast. Additional spot magnification views were obtained, which demonstr ate a few loose groupings of punctate microcalcifications in addition to the diffuse background punc villanueva microcalcifications. However, there is no suspicious grouping or cluster identified. These mi ght calcifications most likely represent sclerosing adenosis or fibrocystic change. However, given that this was the baseline mammogram and the left breast, a short interval follow-up exam including spot magnification views is recommended. Targeted ultrasound was performed in the area of visible and palpable mass in the periareolar and torre bareolar right breast. On visual inspection there is an ulcerating mass replacing the nipple and ar eola. On ultrasound, there is a spiculated and angular hypoechoic solid vascular mass with marked t hickening of the areola. Accurate measurements are difficult to obtain on ultrasound given that the mass extends beyond the length of the ultrasound probe. This mass is highly suspicious for maligna ncy and definitive characterization with an ultrasound-guided core needle biopsy is recommended. Additional sonographic evaluation was performed in the right axilla to assess for the morphologicall y normal lymph node seen mammographically and on CT. There is a hypoechoic shadowing mass with ill- defined margins measuring approximately 2.3 x 1.5 x 1.1 cm. This correlates well in size, shape and morphology as the lymph node seen mammographically and is suspicious for metastatic disease. IMPRESSION: ACR BI-RADS CATEGORY 5: HIGHLY SUGGESTIVE OF MALIGNANCY, TARGETED ULTRASOUND ACR BI-RAD S CATEGORY 5: HIGHLY SUGGESTIVE OF MALIGNANCY 1. Ultrasound guided core needle biopsy is recommended for a solid palpable suspicious mass in the retroareolar right breast involving the nipple and areola. Mammographically this mass measures up t o 6 cm. 2. Ultrasound-guided core needle biopsy is recommended for a morphologically abnormal 2.3 cm right axillary lymph node. 3. No definite mammographic evidence of malignancy in the left breast. There are diffuse scattered and loosely grouped punctate benign-appearing microcalcifications in the left breast. No suspiciou s grouping or cluster is identified to warrant biopsy at this time. Would follow-up in 6 months giv en that no prior mammograms are available to ensure stability. These results and recommendations were discussed with the patient at the time of the exam. The ultr asound-guided core needle biopsy in the right breast and axilla were performed during the same appoi ntment. Please refer to a separate report for full detail. Approximately 10% of breast cancers are not detected with mammography. A negative mammographic repor t should not delay biopsy if a clinically suggestive mass is present. Adriana Johnson M.D. ay/:01/10/2017 21:33:43 [employer] Program Manager: Elayne Pena, [facility] letter sent: Abnormal 4/5 BI-RADS Code: ACR BI-RADS Category 5: Highly Suggestive Of Malignancy Ultrasound BI-RADS: ACR BI-RA DS Category 5: Highly Suggestive Of Malignancy
== END | disposition home or self-care (01) ==
LOC: C.MAMM 13:58
PROVIDERS: ATTEND Surgery
DX: C50.911 Malignant neoplasm of unspecified site of right female breast (principal); C77.3 Secondary and unspecified malignant neoplasm of axilla and upper limb lymph nodes

== ENCOUNTER → 2017-01-22 | Outpatient (CLI) | payer BC ==
--- NOTE | 2017-01-22 12:01 | DIAGNOSTIC IMAGING REPORT ---
PET/CT CLINICAL HISTORY: Breast cancer. COMPARISON STUDY: Chest CT dated 01/08/2017. MRI of the thoracic spine dated 01/08/2017. TECHNIQUE: One hour following the IV administration of 10.32 mCi of F-18 FDG, PET/CT examination was performed from the orbital meatal line through the bony pelvis. Noncontrast CT is performed for the purposes of anatomic correlation and attenuation correction. Note that this does not reflect a diagnostic CT examination. Images were reviewed on a separate [employer] independent workstation. Fused images were obtained. Standard uptake values reported are maximum values within the region of interest expressed in gm/mL. FINDINGS: PET FINDINGS: Head and neck: There is expected physiologic activity within the visualized brain parenchyma at the skull base and the salivary glands. Thorax: Evaluation of the thorax demonstrates expected physiologic myocardial activity. There is an ill-defined soft tissue mass identified in the subareolar right breast. This is markedly FDG avid with a maximum SUV of 14.0, and this region measures approximately 5.5 x 3.5 cm. There are at least 3 FDG avid right axillary lymph nodes. The largest is seen on image #77. This measures 2.3 x 1.7 cm and demonstrates a maximum SUV of 5.4. Subcentimeter mildly FDG avid nodes are seen on images #74 the subpectoral region and image #82. No FDG avid lesion is seen in the left breast. 3 pulmonary nodules measuring up to 6 mm were not demonstrably FDG avid but are too small for PET characterization. Abdomen and pelvis: There is expected activity within the liver, spleen, kidneys, renal collecting system, and bladder. Low-level bowel activity is likely within physical limits. Skeletal structures: Findings are consistent with multifocal osteolytic metastatic disease. Large lesions are again seen in the bodies of T4, T5, and T6. The lesion at T4 and T5 causes acquired compromise of the central canal. This is markedly FDG avid with a maximum SUV of 10.4. Additional lesions are present within both iliac wings, the left sacrum, and the left posterior ninth rib. There is a pathologic fracture of the left posterior ninth rib. Unenhanced CT images: Partially imaged brain parenchyma the skull base is within normal limits. The visualized paranasal sinuses are clear and the mastoid air cells are well pneumatized. The salivary and thyroid glands are normal as imaged. There is no cervical lymphadenopathy. Atherosclerotic calcification is noted in the carotid bulbs. A left subclavian central venous infusion port is in place. There is mild atherosclerotic calcification of the thoracic aorta which is normal in caliber. The heart is top normal in size and without pericardial effusion. The coronary arteries are densely calcified. There is lipomatous hypertrophy of the interatrial septum. There is no mediastinal or hilar lymphadenopathy. There is no airspace consolidation or pleural effusion. A 6 mm right middle lobe nodule is seen on image #106. A 5 mm right middle lobe nodule seen image #102. A 4 mm left apical nodule seen on image #69. These are unchanged from the 01/08/2017 CT scan. The unenhanced liver, spleen, adrenal glands, end pancreas are grossly unremarkable. A subcentimeter cyst is noted in the left kidney. The kidneys demonstrate mild cortical atrophy and are without hydronephrosis. Small calcified gallstones are suspected. There is probable adenomyomatosis in the fundal region. The abdominal aorta is normal in caliber noting moderate atherosclerotic calcification. There is no bowel obstruction. A normal appendix is identified. A small fat-containing umbilical hernia is identified. No intraperitoneal free air or abdominal ascites is seen. The bladder, uterus, and adnexa are normal as imaged. There is no upper abdominal, retroperitoneal, pelvic sidewall, or inguinal lymphadenopathy. The skeletal structures are osteopenic. See above for assessment of metastatic bone disease. There are healed right-sided rib fractures. IMPRESSION: 1. There is a large and markedly FDG avid subareolar mass lesion in the right breast. 2. There is FDG avid right axillary and subpectoral lymphadenopathy. 3. Findings are consistent with multifocal osteolytic metastatic disease as described above. 4. There is acquired compromise of the central canal at T4 and T5 secondary to metastatic bone disease. This was better characterized on 01/08/2017 MRI. 5. There are at least 3 indeterminant pulmonary nodules measuring up to 6 mm. These were not FDG avid but are too small for PET characterization. 6. There is no airspace consolidation or pleural effusion. 7. Suspect cholelithiasis. 8. Additional changes as above. Electronically signed by: David Ordonez M.D. 01/22/2017 11:59 AM Dictated Date/Time: 01/22/2017 11:40 AM
== END | disposition home or self-care (01) ==
LOC: C.PET 06:41
PROVIDERS: ATTEND Surgery
DX: C50.919 Malignant neoplasm of unspecified site of unspecified female breast (principal); C79.9 Secondary malignant neoplasm of unspecified site

== ENCOUNTER → 2017-02-21 | Outpatient (CLI) | payer BC ==
[~2017-02-21] MED LIST changes: -PRD50 PO
[2017-02-21 14:09] VITALS: BP 104/69; PULSE 89; TEMP 36.7; O2SAT 96
--- NOTE | 2017-02-21 16:22 | Radiation Oncology Follow-Up ---
Radiation Oncology Follow-Up Date of Visit February 21, 2017. Reason For Visit One-month follow-up Radiation Completion Date 01/25/17 Diagnosis (1) Breast mass Status: Chronic Onset Date: 01/10/2017 Location: metastasis to the thoracic spine Histology Subtype: ductal Stage: IV Permanent Comment: Right breast mass present for greater than of a thoracic pain and admission for evaluation Chest CT revealing a right breast mass and axillary adenopathy Bone metastasis especially noted in the thoracic spine Status post right breast biopsy and biopsy of the axilla 01/10/2017 revealing infiltrative ductal adenocarcinoma grade 3 Estrogen receptor positive, progesterone receptor positive, and HER-2/alena negative Status post completion of radiation therapy to the thoracic spine 01/25/2017 received 3000 cGy Last Edited By: Leda Rodriguez on Feb 02, 2017 13:34 History of Present Illness Ms. Hudson is a 61-year-old postmenopausal female without a family history of breast cancer. The patient was aware of a palpable right breast abnormality for at least a year longer. This started as a tender nodule and ultimately progressed to an ulcerating and draining mass involving the nipple areolar complex. The lesion was not painful but was tender. Patient was not being followed with screening mammograms and has not seen a physician for many years. Recently the patient noted the onset of upper mid thoracic pain that has been progressively more severe over the past several months. She noted an increase in the severity of the pain over the past weekend. She was taking ibuprofen without significant benefit. The pain was worse with standing but not entirely relieved by sitting or lying flat. The patient denied tingling or numbness of the lower extremity or weakness of the lower extremity. The patient presented to the emergency department where studies were performed. A CT scan of the chest revealed no pulmonary emboli or thoracic aortic dissection. There were no enlarged mediastinal or hilar lymph nodes present. There was an enlarged right axillary lymph node measuring 2.4 x 1.8 cm. There was also an ulcerated periareolar right breast mass measuring 5.8 x 4.3 cm with associated skin thickening. There was no left axillary lymphadenopathy. There were 2 right middle lobe nodules measuring up to 6 mm and a 4 mm left upper lobe nodule. There was a 1.5 cm lytic lesion seen within the posterior left ninth rib and numerous lytic lesions visualized within the skeletal structures. This included lesions within T4, T5 and T6 vertebrae with mild loss of height of the T5 vertebral body. There was extensive epidural spread of tumor at these levels which was suboptimally assessed by CT scan. This resulted in central canal narrowing likely moderate to severe in degree. There was possible cord compression. Multiple neural foramen were narrowed by tumor. Tumor extends into the posterior elements. There was no evidence of liver metastasis appreciated. MRI of the cervical and lumbar vertebral body showed some degenerative changes but no evidence of metastatic disease. MRI of the thoracic spine however revealed areas of marrow replacement involving the T4, T5 and T6 levels consistent with metastatic disease. There was also a focus of marrow edema/ replacement involving the anterior inferior T12 endplate. This focus could either be degenerative or related to an additional focus of metastatic disease. Epidural tumor spread was noted at the T4-T5 levels with moderate secondary spinal canal narrowing. There was also narrowing of the right T4-T5 neural foramen. Patient was seen in referral by Dr. Pankaj Mckeon for consideration of tissue diagnosis or treatment options. The patient was also arranged to be seen by Dr. Jonah Nguyen for medical oncology evaluation. They discussed the need to obtain tissue diagnosis to better define systemic treatment options in light of obvious metastatic disease. Also the ER/NM and HER-2/alena status are critical to deciding treatment options. Dr. Nguyen suggested an orthopedic consult to consider possible kyphoplasty to the T5 vertebral body. He felt the patient was not the best candidate for kyphoplasty of the pathologic fracture T5 due to the bony destruction seen on CT scan and soft tissue extension to the posterior wall and right pedicle. The recommendation was for consideration of radiation therapy referral. She underwent a CT simulation. She then began palliative radiation therapy. She did undergo a breast and axillary biopsy. This was performed on 2016. This did reveal invasive ductal carcinoma. She completed her radiation 01/25/2017. She received 3000 cGy. She had a port placed. She'll continue follow-up with medical oncology and will be undergoing systemic chemotherapy. Interim History She's been doing well over the past month in regards to the treatment to the thoracic spine. She has very minimal discomfort in her back. She occasionally takes tramadol for relief. Resting helps relieve discomfort also. She did develop some mild dysphagia following the treatment. She describes a foreign- body sensation. This steadily improved and is now minimal. She had some mild erythema of the skin of her back. This then resolved and became more of a sawant. She is being followed in medical oncology and is undergoing chemotherapy. His treatment 3 weeks on and one-week off. He is plan for her to undergo 6 cycles. She'll have recheck testing to evaluate for response. She was started on anastrozole. She is tolerating the medication well. She has mild hot flashes. Allergies Coded Allergies: Codeine (Verified Adverse Reaction, Mild, "DRUNK FEELING", 01/09/17) Home Medications Scheduled Anastrozole (Anastrozole), 1 TAB PO DAILY Benzonatate (Tessalon Perles), 1 CAP PO TIDPRN Calcium Carbonate-Vitamin D (Calcium + D), 1 TAB PO DAILY Multiple Vitamin (Multi-Vitamin), 1 TAB PO DAILY Scheduled PRN Alprazolam (Alprazolam), 0.25 MG PO Q6H PRN for Anxiety/Agitation Tramadol HCl (Tramadol HCl), 50 MG PO Q6H PRN for Pain Review of Systems Gastrointestinal: Symptoms: Diarrhea GI Comments: few episodes of n/v due to coughing chest congestion, occ slight diarrhea Oral: Other Oral Symptoms: occ swallowing , hoarsenessx 2 weeks is getting better Respiratory: Symptoms: Productive Cough Sputum Character: white,milky Urinary: Symptoms: WNL Skin: Symptoms: Faint Erythema Other Skin Symptoms: dryness skin treatment area Physical Exam Vital Signs Date Time Temp Pulse Resp B/P Pulse Ox O2 Delivery O2 Flow Rate FiO2 02/21/17 14:09 36.7 89 20 104/69 96 Fatigue: None General Appearance: no apparent distress Eyes: normal inspection, EOMI ENT: normal ENT inspection, hearing grossly normal Neck: no adenopathy Respiratory/Chest: lungs clear, no respiratory distress, no accessory muscle use, + pertinent finding (mild hyperpigmentation in the center portion of the upper back.) Breast: The wound of the right nipple has nearly completely healed. There are no open areas. There is no erythema or edema and no sign of infection. Cardiovascular: regular rate, rhythm, no gallop, no murmur Neurologic/Psychiatric: no motor/sensory deficits, alert, oriented x 3 Skin: warm/dry Laboratory Studies Test 01/08/17 08:50 01/08/17 08:51 01/08/17 09:05 01/08/17 09:12 Urine Color YELLOW Urine Appearance CLEAR (CLEAR) Urine pH 7.5 (4.5-7.5) Urine Specific [place] 1.020 (1.000-1.030) Urine Protein NEG (NEG) Urine Glucose (UA) NEG (NEG) Urine Ketones TRACE (NEG) Urine Occult Blood NEG (NEG) Urine Nitrite NEG (NEG) Urine Bilirubin NEG (NEG) Urine Urobilinogen NEG (NEG) Urine Leukocyte Esterase NEG (NEG) Creatine Kinase MB Ratio (0-3.0) 0.9 (0-3.0) PTT 25.3 SECONDS (21.0-31.0) Partial Thromboplastin Ratio 1.0 Total Creatine Kinase 68 U/L (26-192) Creatine Kinase MB 0.6 ng/ml (0.5-3.6) Troponin I < 0.015 ng/ml (0-0.045) Thyroid Stimulating Hormone (TSH) 1.100 uIu/ml (0.300-4.500) POC D-Dimer > 450 ng/mlFEU (0-450) Test 01/09/17 05:40 01/09/17 14:12 01/10/17 00:00 01/10/17 06:40 Prothrombin Time 10.8 SECONDS (9.0-12.0) 11.1 SECONDS (9.0-12.0) Prothrombin Time INR 1.0 (0.9-1.1) 1.0 (0.9-1.1) Est Creatinine Clear Calc Drug Dose 107.5 ml/min 97.7 ml/min Magnesium Level 1.9 mg/dl (1.8-2.4) CA 15-3 Antigen 9 U/mL (<32) CA 27.29 23 U/ML (<38) HER-2 (FISH) See Comment Test 01/30/17 08:16 02/05/17 10:02 02/13/17 08:06 RDW Standard Deviation 44.0 fL (36.4-46.3) 42.7 fL (36.4-46.3) RDW Coefficient of Variation 12.9 % (11.5-14.5) 12.9 % (11.5-14.5) White Blood Count 7.73 K/uL (4.8-10.8) 2.61 K/uL (4.8-10.8) 4.44 K/uL (4.8-10.8) Red Blood Count 4.41 M/uL (4.2-5.4) 4.34 M/uL (4.2-5.4) 4.27 M/uL (4.2-5.4) Hemoglobin 14.2 g/dL (12.0-16.0) 14.0 g/dL (12.0-16.0) 13.7 g/dL (12.0-16.0) Hematocrit 41.0 % (37-47) 40.5 % (37-47) 39.1 % (37-47) Mean Corpuscular Volume 93.0 fL (80-100) 93.3 fL (80-100) 91.6 fL (80-100) Mean Corpuscular Hemoglobin 32.2 pg (25-34) 32.3 pg (25-34) 32.1 pg (25-34) Mean Corpuscular Hemoglobin Concent 34.6 g/dl (32-36) 34.6 g/dl (32-36) 35.0 g/dl (32-36) Platelet Count 158 K/uL (130-400) 166 K/uL (130-400) 251 K/uL (130-400) Mean Platelet Volume 10.2 fL (7.4-10.4) 9.9 fL (7.4-10.4) Neutrophils (%) (Auto) 82.7 % 72.0 % 59.3 % Lymphocytes (%) (Auto) 11.8 % 20.7 % 25.5 % Monocytes (%) (Auto) 3.9 % 3.8 % 12.2 % Eosinophils (%) (Auto) 1.2 % 2.7 % 0.5 % Basophils (%) (Auto) 0.3 % 0.4 % 0.5 % Neutrophils # (Auto) 6.40 K/uL (1.4-6.5) 1.88 K/uL (1.4-6.5) 2.64 K/uL (1.4-6.5) Lymphocytes # (Auto) 0.91 K/uL (1.2-3.4) 0.54 K/uL (1.2-3.4) 1.13 K/uL (1.2-3.4) Monocytes # (Auto) 0.30 K/uL (0.11-0.59) 0.10 K/uL (0.11-0.59) 0.54 K/uL (0.11-0.59) Eosinophils # (Auto) 0.09 K/uL (0-0.5) 0.07 K/uL (0-0.5) 0.02 K/uL (0-0.5) Basophils # (Auto) 0.02 K/uL (0-0.2) 0.01 K/uL (0-0.2) 0.02 K/uL (0-0.2) Immature Granulocyte % (Auto) 0.4 % 2.0 % Immature Granulocyte # (Auto) 0.01 K/uL (0.00-0.02) 0.09 K/uL (0.00-0.02) Sodium Level 141 mmol/L (136-145) 142 mmol/L (136-145) Potassium Level 4.2 mmol/L (3.5-5.1) 3.7 mmol/L (3.5-5.1) Chloride Level 107 mmol/L (98-107) 106 mmol/L (98-107) Carbon Dioxide Level 27 mmol/L (21-32) 29 mmol/L (21-32) Anion Gap 7.0 mmol/L (3-11) 7.0 mmol/L (3-11) Blood Urea Nitrogen 11 mg/dl (7-18) 8 mg/dl (7-18) Creatinine 0.83 mg/dl (0.60-1.20) 0.75 mg/dl (0.60-1.20) Estimated GFR () 87.6 99.0 Estimated GFR (Non- 75.6 85.4 BUN/Creatinine Ratio 12.9 (10-20) 10.1 (10-20) Random Glucose 151 mg/dl (70-99) 136 mg/dl (70-99) Calcium Level 9.7 mg/dl (8.5-10.1) 9.1 mg/dl (8.5-10.1) Total Bilirubin 1.0 mg/dl (0.2-1) 0.4 mg/dl (0.2-1) Aspartate Amino Transferase (AST) 26 U/L (15-37) 26 U/L (15-37) Alanine Aminotransferase (ALT) 49 U/L (12-78) 35 U/L (12-78) Alkaline Phosphatase 97 U/L (45-117) 87 U/L (45-117) Total Protein 6.9 gm/dl (6.4-8.2) 6.6 gm/dl (6.4-8.2) Albumin 3.7 gm/dl (3.4-5.0) 3.3 gm/dl (3.4-5.0) Globulin 3.2 gm/dl (2.5-4.0) 3.3 gm/dl (2.5-4.0) Albumin/Globulin Ratio 1.2 (0.9-2) 1.0 (0.9-2) Assessment & Plan Plan: She no longer requires treatment at the [facility]. She continues follow -up with Dr. Nguyen. She is continued on chemotherapy. She did not require any medication for the foreign body sensation. She has Ultram available if needed for back discomfort. She had a very good response to treatment. A follow-up appointment with our office was not given. She may return if needed and directed by medical oncology. She may call our office if she has any questions or concerns. Total Time In Follow-Up I spent 20 minutes speaking to the patient and performing examination. I spent 15 minutes reviewing information and completeness note. Copy To Sameera Rosenbaum MD; Isauro Chaidez M.D.; Rony Nguyen D.O.
== END | disposition home or self-care (01) ==
LOC: C.ONC 14:03
PROVIDERS: ATTEND Physician Assistant Medical
DX: Z08 Encounter for follow-up examination after completed treatment for malignant neoplasm (principal); Z92.3 Personal history of irradiation; Z85.3 Personal history of malignant neoplasm of breast

== ENCOUNTER 2017-03-10 14:32 | Emergency (ER) | payer BC ==
[~2017-03-10] VITALS: Ht 162.6 cm; Wt 94.5 kg
[~2017-03-10 14:32] MED LIST changes: -CEPH500C PO; -ENOX80IN SQ; -PHEN-876 PO; -PRED10TA PO; -WARF5TAB7 PO
[2017-03-10 14:35] VITALS: TEMP 37; Ht 162.6 cm; Wt 94.5 kg
[2017-03-10] MEDS ORDERED: SODIUM CHLORIDE 0.9% 1000ML 1,000 ML IV STA (14:54)
[2017-03-10 15:38] LABS: BASO % 0.9 %; BASO ABS # 0.04 K/uL (0-0.2); COMPLETE YES; HEMATOCRIT 34.2 % (37-47); IG% 0.4 %; LYMPH % 22.2 %; LYMPH ABS # 1.03 K/uL (1.2-3.4); MEAN CELL VOLUME 90.7 fL (80-100); MEAN CORPUSCULAR HEMOGLOBIN 30.2 pg (25-34); MEAN CORPUSCULAR HGB CONC 33.3 g/dl (32-36); MEAN PLATELET VOLUME 10.8 fL (7.4-10.4); MONO % 1.9 %; NEUT % 68.6 %; PLATELET COUNT 223 K/uL (130-400); RED BLOOD COUNT 3.77 M/uL (4.2-5.4); WHITE BLOOD COUNT 4.65 K/uL (4.8-10.8)
[2017-03-10 15:59] LABS: BUN/CREATININE RATIO 20.1 (10-20); CREATININE 0.57 mg/dl (0.60-1.20); POTASSIUM 3.9 mmol/L (3.5-5.1)
[2017-03-10 16:01] LABS: ALB/GLOB RATIO 1.3 (0.9-2)
--- NOTE | 2017-03-10 16:34 | DIAGNOSTIC IMAGING REPORT ---
CT SCAN OF THE ABDOMEN AND PELVIS WITHOUT IV CONTRAST CLINICAL HISTORY: Lower abdominal pain. Urinary urgency. History of breast cancer. COMPARISON STUDY: PET/CT dated 01/22/2017. TECHNIQUE: CT scan of the abdomen and pelvis is performed from the lung bases to the proximal femora. Images are reviewed in the axial, sagittal, and coronal planes. IV contrast was not administered for this examination as per the referring clinician. Note that the examination was performed in suboptimal fashion without oral and IV contrast. Automated dose control exposure was utilized. CT DOSE: 1634.92 mGy.cm FINDINGS: Lung bases: The heart is normal in size and without pericardial effusion. There is lipomatous hypertrophy of the interatrial septum. The coronary arteries are densely calcified. 6 mm and 7 mm right middle lobe pulmonary nodules are seen on axial images #26 and #36. This is unchanged from 01/22/2017. The lung bases are clear. There is a small hiatal hernia. There is a 4 cm nodular lesion in the right breast. This corresponds to FDG avid breast cancer identified by PET on 01/22/2017. Liver: The unenhanced liver is normal in size, contour, and attenuation. There is no intrahepatic biliary ductal dilatation. Gallbladder: There are calcified gallstones. The gallbladder is contracted and there is no CT evidence of cholecystitis. Spleen: Normal in size and attenuation. Pancreas: The unenhanced pancreas is atrophic. Numerous parenchymal calcifications indicate chronic pancreatitis. Adrenal glands: Unremarkable. Kidneys: The unenhanced kidneys demonstrate cortical atrophy and are without hydronephrosis. There are no renal calculi identified. A 1.3 cm cyst is seen in the left lower pole. There is no evidence of contour deforming renal mass lesion. Abdominal vasculature: The abdominal aorta is normal in course and caliber noting moderate to advanced atherosclerotic calcification. Bowel: The small bowel and colon are normal in course and caliber. The appendix is normal as visualized. Peritoneum: There is no intraperitoneal free air or abdominal ascites. Lymphadenopathy: None. Pelvic viscera: The bladder wall appears mildly thickened and there is pericystic inflammation. The uterus and adnexa are normal as visualized. Skeletal structures: The skeletal structures are osteopenic. There is mild lumbosacral spondylosis. Subtle osteoblastic lesions are identified within the right ilium on images #294 and #308. A subtle left ileal lesion is seen on image #295. There is a healed left posterior ninth rib fracture. An indeterminant sclerotic focus is seen in the right posterior 12th rib on image #107. IMPRESSION: 1. Suboptimal examination without oral and IV contrast 2. Findings suggest mild cystitis. Correlation with clinical findings and urinalysis will be required. 3. A right breast mass is again noted. 4. Cholelithiasis. 5. Findings are consistent with chronic pancreatitis. 6. Subtle osteoblastic metastatic lesions are again identified. These were better characterized on the 01/22/2017 PET examination. 7. Additional findings as above. Electronically signed by: David Ordonez M.D. 03/10/2017 4:33 PM Dictated Date/Time: 03/10/2017 4:23 PM
[2017-03-10 16:57] LABS: URINE APPEARANCE CLEAR (CLEAR); URINE BILIRUBIN NEG (NEG); URINE COLOR YELLOW; URINE NITRITE POS (NEG); URINE PH 7.5 (4.5-7.5); URINE SPECIFIC GRAVITY 1.015 (1.000-1.030); UROBILINOGEN NEG (NEG)
[2017-03-10 16:59] LABS: MANUAL MICROSCOPIC REQUIRED? NO; REVIEW REQ? NO
[2017-03-10] MEDS ORDERED: PIPERACILLIN/TAZOBACTAM 3.375 GM/100ML D5W IV STA (17:02)
[2017-03-10] MEDS ORDERED: PIPERACILL/TAZOBAC IV 3.375 GM in DEXTROSE 5% 100ML IV ONE (17:15)
--- NOTE | 2017-03-10 18:33 | EMERGENCY ROOM VISIT NOTE ---
History Report prepared by Jennifer: Davy Doan Under the Supervision of: Wade JoshiO. First contact with patient: 14:40 Chief Complaint: URINARY SYMPTOMS Stated Complaint: KIDNEY INFECTION History of Present Illness The patient is a 61 year old female who presents to the Emergency Room with complaints of constant difficulty urinating beginning this morning. She currently rates her discomfort a 2/10 in severity. The patient states that it feels like she has to urinate, but she cannot. She reports that when she is able to urinate, it is miniscule and contains small amounts of blood. The patient states that she has not had any previous kidney infections. The patient denies fevers, chills, and nausea. She notes that she is currently receiving chemotherapy for breast cancer. The patient states that she is receiving 6 treatments over the course of 2 months. She notes that she receives treatment every Sunday for three weeks, and then she has a week off; then, the cycle is repeated. The patient states that her cancer is hormonal. She also notes that her cancer metastasized to her back, and she received radiation. No cp, sob, f/c, back pain, n/v/d, edema, palpitations, rash/sores, vision change, sore throat, dizziness, pina, paresthesias, tremors. Source of History: patient Onset: this morning Position: other (global) Symptom Intensity: 2/10 Quality: other (urinary retention) Timing: constant Associated Symptoms: No chills, No fevers, No nausea Review of Systems See HPI for pertinent positives & negatives. A total of 10 systems reviewed and were otherwise negative. Past Medical & Surgical Medical Problems: (1) Breast mass (2) Contusion of left foot (3) Contusion of left foot (4) No Known Active Medical Problems Surgical Problems: (1) History of dilatation and curettage Family History Diabetes mellitus FH: thyroid disease Hypertension Social History Smoking Status: Current Every Day Smoker Drug Use: none Marital Status: Housing Status: lives with family Occupation Status: employed Current/Historical Medications Scheduled Anastrozole (Anastrozole), 1 TAB PO DAILY Benzonatate (Tessalon Perles), 1 CAP PO TIDPRN Calcium Carbonate-Vitamin D (Calcium + D), 1 TAB PO DAILY Cephalexin Monohydrate (Keflex), 500 MG PO BID Multiple Vitamin (Multi-Vitamin), 1 TAB PO DAILY Scheduled PRN Phenazopyridine HCl (Pyridium), 200 MG PO TID PRN for Frequency/Burning w/ Urination Tramadol HCl (Tramadol HCl), 50 MG PO Q6H PRN for Pain Allergies Coded Allergies: Codeine (Verified Adverse Reaction, Mild, "DRUNK FEELING", 03/10/17) Physical Exam Vital Signs Date Time Temp Pulse Resp B/P Pulse Ox O2 Delivery O2 Flow Rate FiO2 03/10/17 18:46 92 20 136/70 96 03/10/17 18:34 92 20 136/70 96 Room Air 03/10/17 16:25 91 14 132/60 96 Room Air 03/10/17 15:37 95 15 141/70 95 Room Air 03/10/17 14:35 37.0 117 18 131/69 96 Room Air Physical Exam GENERAL: alert, well appearing, well nourished, no distress, non-toxic EYE EXAM: normal conjunctiva, PERRL and EOM's grossly intact OROPHARYNX: no exudate, no erythema, lips, buccal mucosa, and tongue normal and mucous membranes are moist NECK: supple, no nuchal rigidity, no adenopathy, non-tender LUNGS: Clear to auscultation. Normal chest wall mechanics HEART: no murmurs, S1 normal and S2 normal ABDOMEN: abdomen soft, mild suprapubic tenderness, normo-active bowel sounds, no masses, no rebound or guarding. BACK: Back is symmetrical on inspection and there is no deformity, no midline tenderness, no CVA tenderness. SKIN: no rashes and no bruising UPPER EXTREMITIES: upper extremities are grossly normal. LOWER EXTREMITIES: No pitting edema. NEURO EXAM: Normal sensorium, cranial nerves II-XII [grossly] intact, normal speech, no [gross] weakness of arms, no [gross] weakness of legs. [No drift. Finger to nose intact. Gross sensation intact.] Medical Decision & Procedures ER Provider Diagnostic Interpretation: CT:Per my review, radiologist interpretation. CT SCAN OF THE ABDOMEN AND PELVIS WITHOUT IV CONTRAST CLINICAL HISTORY: Lower abdominal pain. Urinary urgency. History of breast cancer. COMPARISON STUDY: PET/CT dated 01/22/2017. TECHNIQUE: CT scan of the abdomen and pelvis is performed from the lung bases to the proximal femora. Images are reviewed in the axial, sagittal, and coronal planes. IV contrast was not administered for this examination as per the referring clinician. Note that the examination was performed in suboptimal fashion without oral and IV contrast. Automated dose control exposure was utilized. CT DOSE: 1634.92 mGy.cm FINDINGS: Lung bases: The heart is normal in size and without pericardial effusion. There is lipomatous hypertrophy of the interatrial septum. The coronary arteries are densely calcified. 6 mm and 7 mm right middle lobe pulmonary nodules are seen on axial images #26 and #36. This is unchanged from 01/22/2017. The lung bases are clear. There is a small hiatal hernia. There is a 4 cm nodular lesion in the right breast. This corresponds to FDG avid breast cancer identified by PET on 01/22/2017. Liver: The unenhanced liver is normal in size, contour, and attenuation. There is no intrahepatic biliary ductal dilatation. Gallbladder: There are calcified gallstones. The gallbladder is contracted and there is no CT evidence of cholecystitis. Spleen: Normal in size and attenuation. Pancreas: The unenhanced pancreas is atrophic. Numerous parenchymal calcifications indicate chronic pancreatitis. Adrenal glands: Unremarkable. Kidneys: The unenhanced kidneys demonstrate cortical atrophy and are without hydronephrosis. There are no renal calculi identified. A 1.3 cm cyst is seen in the left lower pole. There is no evidence of contour deforming renal mass lesion. Abdominal vasculature: The abdominal aorta is normal in course and caliber noting moderate to advanced atherosclerotic calcification. Bowel: The small bowel and colon are normal in course and caliber. The appendix is normal as visualized. Peritoneum: There is no intraperitoneal free air or abdominal ascites. Lymphadenopathy: None. Pelvic viscera: The bladder wall appears mildly thickened and there is pericystic inflammation. The uterus and adnexa are normal as visualized. Skeletal structures: The skeletal structures are osteopenic. There is mild lumbosacral spondylosis. Subtle osteoblastic lesions are identified within the right ilium on images #294 and #308. A subtle left ileal lesion is seen on image #295. There is a healed left posterior ninth rib fracture. An indeterminant sclerotic focus is seen in the right posterior 12th rib on image #107. IMPRESSION: 1. Suboptimal examination without oral and IV contrast 2. Findings suggest mild cystitis. Correlation with clinical findings and urinalysis will be required. 3. A right breast mass is again noted. 4. Cholelithiasis. 5. Findings are consistent with chronic pancreatitis. 6. Subtle osteoblastic metastatic lesions are again identified. These were better characterized on the 01/22/2017 PET examination. 7. Additional findings as above. Electronically signed by: David Ordonez M.D. 03/10/2017 4:33 PM Dictated Date/Time: 03/10/2017 4:23 PM Laboratory Results 03/10/17 15:27 Red Blood Count 3.77, Mean Corpuscular Volume 90.7, Mean Corpuscular Hemoglobin 30.2, Mean Corpuscular Hemoglobin Concent 33.3, Mean Platelet Volume 10.8, Neutrophils (%) (Auto) 68.6, Lymphocytes (%) (Auto) 22.2, Monocytes (%) (Auto) 1.9, Eosinophils (%) (Auto) 6.0, Basophils (%) (Auto) 0.9, Neutrophils # (Auto) 3.19, Lymphocytes # (Auto) 1.03, Monocytes # (Auto) 0.09, Eosinophils # (Auto) 0.28, Basophils # (Auto) 0.04 03/10/17 15:27 Test 03/10/17 14:33 03/10/17 15:27 03/10/17 16:40 Lab Scanned Report Laboratory Report/Additional White Blood Count 4.65 K/uL (4.8-10.8) Red Blood Count 3.77 M/uL (4.2-5.4) Hemoglobin 11.4 g/dL (12.0-16.0) Hematocrit 34.2 % (37-47) Mean Corpuscular Volume 90.7 fL (80-100) Mean Corpuscular Hemoglobin 30.2 pg (25-34) Mean Corpuscular Hemoglobin Concent 33.3 g/dl (32-36) Platelet Count 223 K/uL (130-400) Mean Platelet Volume 10.8 fL (7.4-10.4) Neutrophils (%) (Auto) 68.6 % Lymphocytes (%) (Auto) 22.2 % Monocytes (%) (Auto) 1.9 % Eosinophils (%) (Auto) 6.0 % Basophils (%) (Auto) 0.9 % Neutrophils # (Auto) 3.19 K/uL (1.4-6.5) Lymphocytes # (Auto) 1.03 K/uL (1.2-3.4) Monocytes # (Auto) 0.09 K/uL (0.11-0.59) Eosinophils # (Auto) 0.28 K/uL (0-0.5) Basophils # (Auto) 0.04 K/uL (0-0.2) RDW Standard Deviation 44.0 fL (36.4-46.3) RDW Coefficient of Variation 13.2 % (11.5-14.5) Immature Granulocyte % (Auto) 0.4 % Immature Granulocyte # (Auto) 0.02 K/uL (0.00-0.02) Anion Gap 9.0 mmol/L (3-11) Est Creatinine Clear Calc Drug Dose 114.1 ml/min Estimated GFR () 115.2 Estimated GFR (Non- 99.4 BUN/Creatinine Ratio 20.1 (10-20) Lactic Acid Level 1.1 mmol/L (0.4-2.0) Calcium Level 9.0 mg/dl (8.5-10.1) Total Bilirubin 0.8 mg/dl (0.2-1) Aspartate Amino Transf (AST/SGOT) 34 U/L (15-37) Alanine Aminotransferase (ALT/SGPT) 39 U/L (12-78) Alkaline Phosphatase 77 U/L (45-117) Total Protein 6.2 gm/dl (6.4-8.2) Albumin 3.5 gm/dl (3.4-5.0) Globulin 2.7 gm/dl (2.5-4.0) Albumin/Globulin Ratio 1.3 (0.9-2) Urine Color YELLOW Urine Appearance CLEAR (CLEAR) Urine pH 7.5 (4.5-7.5) Urine Specific [place] 1.015 (1.000-1.030) Urine Protein NEG (NEG) Urine Glucose (UA) NEG (NEG) Urine Ketones NEG (NEG) Urine Occult Blood 3+ (NEG) Urine Nitrite POS (NEG) Urine Bilirubin NEG (NEG) Urine Urobilinogen NEG (NEG) Urine Leukocyte Esterase MODERATE (NEG) Urine WBC (Auto) >30 /hpf (0-5) Urine RBC (Auto) >30 /hpf (0-4) Urine Hyaline Casts (Auto) 5-10 /lpf (0-5) Urine Epithelial Cells (Auto) 5-10 /lpf (0-5) Urine Bacteria (Auto) 4+ (NEG) Date/Time Source Procedure Growth Status 03/10/17 16:40 Urine , Clean Catch Urine Culture - Final Escherichia Coli Complete Laboratory results per my review. Medications Administered Medications (Trade) Dose Ordered Sig/Elida Route Start Time Stop Time Status Last Admin Dose Admin Sodium Chloride (Nss 1000ml) 1,000 ml @ 999 mls/hr Q1H1M STAT IV 03/10/17 14:54 03/10/17 15:54 DC 03/10/17 15:34 999 MLS/HR Heparin Sodium (Porcine) 5 ml 5 ml STK-MED ONCE .ROUTE 03/10/17 16:31 03/10/17 16:32 DC 03/10/17 16:31 5 ML Piperacillin Sod/ Tazobactam Sod/ Dextrose (Zosyn Iv/D5 100ml) 115 ml @ 230 mls/hr NOW ONCE IV 03/10/17 17:15 03/10/17 17:44 DC 03/10/17 17:27 230 MLS/HR ED Course 1444: The patient was evaluated in room A02. A complete history and physical exam was performed. 1454: Ordered Sodium Chloride 1000 ml @ 999 mls/hr IV 1631: Ordered Heparin Sodium (Porcine) 5ml .route 1715: Ordered Piperacillin Sod/Tazobactam Sod 3.375 gm/Dextrose 115ml @ 230 mls/ hr Protocol 1808: Upon reevaluation, the patient is feeling better. I discussed the findings and the treatment plan with the patient. 1838: Ordered Pyridium Tab 200mg PO 1840: I reevaluated the patient, and she would like to go home. I discussed the risks of leaving with the patient. She verbalizes agreement and understanding. She was discharged home. Medical Decision Differential diagnosis: Etiologies such as appendicitis, diverticulitis, PUD, biliary pathology, UTI, pancreatitis, obstruction, mesenteric ischemia, aortic pathology, infections, inflammatory bowel disease, renal colic, as well as others were entertained. Pt well appearing here despite complaints. Able to void without difficulty, but persistent urgency. Likely UTI contributing to discomfort. No hx or cultures to compare to prior. Pt not neutropenic, no fevers, tolerating po, VS stable. Doubt bacteremia/sepsis. Normal renal function. Advised close f/u with heme/onc regarding current cancer tx. Culture sent. Discussed sx to watch /return for, use of antibiotics, staying well hydrated, she verbalized understanding and was agreeable with plan. Discussed all results at bedside, no other acute changes in known malignancy/mets, no other acute GI//vascular findings to suspect as etiology of symptoms at presentation. Impression Primary Impression: UTI (urinary tract infection) Additional Impression: Lower abdominal pain Scribe Attestation The scribe's documentation has been prepared under my direction and personally reviewed by me in its entirety. I confirm that the note above accurately reflects all work, treatment, procedures, and medical decision making performed by me. Departure Information Dispostion Home / Self-Care Prescriptions Phenazopyridine HCl (Pyridium) 200 Mg Tab 200 MG PO TID Y for Frequency/Burning w/Urination, #20 TAB Prov: Rehana Denson, DO 03/10/17 Cephalexin Monohydrate (Keflex) 500 Mg Cap 500 MG PO BID, #20 CAP Prov: Rehana Denson, DO 03/10/17 Referrals Tate Meek M.D. (PCP) Patient Instructions [facility] Additional Instructions Please call your oncologist DANIEL to discuss your urinary tract infection/ antibiotics and next chemo treatment. Please take the antibiotics as prescribed. If you have any worsening pain, develop fevers/chills, dizziness, fatigue, nausea/vomiting, back pain, are unable to urinate, develop diarrhea, rash, or you have any other new or concerning symptoms, please return to the emergency room. Problem Qualifiers Primary Impression: UTI (urinary tract infection) Urinary tract infection type: acute cystitis Hematuria presence: with hematuria Qualified Codes: N30.01 - Acute cystitis with hematuria
[2017-03-10] MEDS ORDERED: CEPH500C PO (18:38)
[2017-03-10] MEDS ORDERED: PHENAZOPYRIDINE HCL 200 MG TAB PO STA (18:38)
[2017-03-10] MEDS ORDERED: PHEN-876 PO (18:38)
[2017-03-10 18:46] VITALS: BP 136/70; PULSE 92; O2SAT 96
[2017-07-17] MEDS ORDERED: WARF5TAB7 PO (11:27)
[2017-07-17] MEDS ORDERED: ENOX80IN SQ (11:28)
[2017-08-02] MEDS ORDERED: WARF5TAB7 PO (15:46)
== END 2017-03-10 18:45 | disposition home or self-care (01) ==
LOC: C.EDB 14:33 → C.EDA 18:45
DX: N39.0 Urinary tract infection, site not specified (principal); C50.919 Malignant neoplasm of unspecified site of unspecified female breast; C79.89 Secondary malignant neoplasm of other specified sites; Z83.3 Family history of diabetes mellitus; Z82.49 Family history of ischemic heart disease and other diseases of the circulatory system; Z83.49 Family history of other endocrine, nutritional and metabolic diseases; F17.210 Nicotine dependence, cigarettes, uncomplicated; Z79.899 Other long term (current) drug therapy

== ENCOUNTER → 2017-07-03 | Outpatient (CLI) | payer BC ==
[~2017-07-03] MED LIST changes: +CEPH500C PO; +ENOX80IN SQ; +PHEN-876 PO; +WARF5TAB7 PO; -XNX25 PO
--- NOTE | 2017-07-03 14:36 | DIAGNOSTIC IMAGING REPORT ---
VENOUS DOPPLER LWR EXT BILA CLINICAL HISTORY: 62 years-old Female presenting with B/L LEG PAIN, R/O DVT. TECHNIQUE: Real-time grayscale and color and spectral Doppler ultrasound imaging of the veins of the bilateral lower extremities was performed. Compression and augmentation were also utilized. COMPARISON: None. FINDINGS: Right: Common femoral vein: Patent. Femoral vein: Patent. Greater saphenous vein: Patent. Popliteal vein: Patent. Calf veins: Evidence of a filling defect within the sural vein consistent with thrombus as well as to superficial veins near the popliteal fossa. Filling defect consistent with thrombus also noted in the posterior tibial and peroneal veins. Left: Common femoral vein: Patent. Femoral vein: Patent. Greater saphenous vein: Patent. Popliteal vein: Patent. Calf veins: Patent. Other: None. IMPRESSION: 1. Deep venous thrombosis limited to the calf veins in the right lower extremity. 2. Superficial venous thrombosis in the right calf. 3. No evidence of deep venous thrombosis in the left lower extremity. Electronically signed by: Geoffrey Madsen M.D. 07/03/2017 2:34 PM Dictated Date/Time: 07/03/2017 2:32 PM
== END | disposition home or self-care (01) ==
LOC: C.ULTR 13:16
PROVIDERS: ATTEND Internal Medicine Hematology & Oncology
DX: C50.111 Malignant neoplasm of central portion of right female breast (principal); I82.4Z1 Acute embolism and thrombosis of unspecified deep veins of right distal lower extremity; I82.811 Embolism and thrombosis of superficial veins of right lower extremity

== ENCOUNTER → 2017-07-13 | Outpatient (CLI) | payer BC ==
[~2017-07-13] MED LIST changes: +OPTIRAY 320 IV PRN
--- NOTE | 2017-07-13 13:54 | DIAGNOSTIC IMAGING REPORT ---
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 TECHNIQUE: Multidetector CT of the abdomen and pelvis was performed after the administration of oral and intravenous contrast. IV contrast: 95 mL of Optiray 320. A dose lowering technique was used consistent with the principles of ALARA (as low as reasonably achievable). COMPARISON: 03/10/2017. CT DOSE (mGy.cm): The estimated cumulative dose is 871.66 inclusive of the chest CT.. FINDINGS: [employer] topogram: Unremarkable. Lung bases: Mosaic attenuation at the lung bases could suggest small airways disease. 2 solid pulmonary nodules in the right middle lobe measure 6 mm (series 7 image 14) and 6 mm ((series 7 image 3), unchanged from prior. Normal heart size. No pericardial or pleural effusion. Liver: Normal morphology. No liver lesion. Patent hepatic vasculature. Biliary: No intrahepatic or extrahepatic biliary ductal dilatation. Normal gallbladder. Pancreas: Mild parenchymal atrophy. Few calcifications in the parenchyma may relate to chronic pancreatitis. Spleen: Normal. Adrenal glands: Normal. Kidneys and ureters: Well-defined hypodensity in the left kidney compatible with cyst. Few additional hypodensities too small to characterize but likely cysts. No hydronephrosis. Ureters normal. Bladder: Incompletely evaluated secondary to underdistention. Pelvic organs: Uterus and ovaries normal. Bowel: Normal appendix. No bowel obstruction. Peritoneal cavity: No free fluid or intraperitoneal gas. Vasculature: Atherosclerosis of the normal caliber abdominal aorta. IVC patent. Lymph nodes: No enlarged lymph nodes in the abdomen or pelvis. Abdominal wall: Normal. Musculoskeletal: Degenerative changes of the spine. Sclerotic lesions in the right ilium are more apparent on the current exam. Additional sclerotic lesion in the left ilium. Additional lesions in the T12 and posterior left ninth rib. These lesions demonstrate a greater degree of sclerosis than on prior exam. IMPRESSION: 1. Sclerotic osseous lesions, which demonstrate a greater degree of sclerosis than on prior exam. This can be seen in the setting of treatment response. No new osseous lesions. 2. Stable solid pulmonary nodules in the right middle lobe measuring up to 6 mm. 3. No lymphadenopathy. Electronically signed by: Geoffrey Madsen M.D. 07/13/2017 1:53 PM Dictated Date/Time: 07/13/2017 1:45 PM
--- NOTE | 2017-07-13 13:58 | DIAGNOSTIC IMAGING REPORT ---
CHEST CT WITH CONTRAST CT DOSE: 871.66 mGy.cm HISTORY: Breast cancer. Metastatic disease. TECHNIQUE: Multiaxial CT images of the chest were performed following the intravenous administration of contrast. A dose lowering technique was utilized adhering to the principles of ALARA. COMPARISON: Chest CT 01/01/1717. PET CT 01/22/2017. FINDINGS: The central airways are patent. No pleural effusions. No pneumothorax. Stable 4 mm nodule within the left lung apex on image 56. A new 4 mm nodule within the right upper lobe on image 72. Stable 4 mm nodule and 5 mm nodule within the right middle lobe. Left subclavian Port-A-Cath terminates in the distal SVC. The right axillary lymphadenopathy has resolved. Right subareolar soft tissue density has decreased in size and could be due to postoperative changes. This currently measures 2.9 cm and demonstrates punctate calcifications. There is a new 1.7 x 0.8 cm irregular density abutting the medial pleura of the right lower lobe on image 129. The heart is normal in size. No mediastinal or hilar lymphadenopathy. The central pulmonary normal caliber thoracic aorta with no evidence for dissection. Increased sclerosis throughout the spinal metastatic lesions suggesting post treatment changes. The destructive soft tissue component at the T5 level has significantly decreased in size and may have resolved in the interval. Moderate compression deformity at T5 has slightly progressed. This demonstrates mild retropulsion of the posterior cortex measuring 3 mm with mild central canal narrowing. IMPRESSION: 1. Overall, significant improvement in the metastatic disease as described above. The destructive soft tissue component to T5 level has significantly decreased in size and may have resolved in the interval. 2. Progressive sclerosis within the bony metastatic disease suggest treatment response. 3. Moderate compression deformity at T5 which has progressed with mild retropulsion of the posterior cortex resulting in mild central canal narrowing. 4. A new 1.7 x 0.8 cm irregular density abutting the medial pleura of the right lower lobe. This is nonspecific but favors post radiation change. Follow up is recommended to ensure stability/resolution. 5. The majority of the pulmonary nodules are stable in size. A new 4 mm nodular density within the right lung apex does not have the typical appearance for a metastatic focus. This also bears watching on future examinations. Electronically signed by: Christian Moctezuma M.D. 07/13/2017 1:57 PM Dictated Date/Time: 07/13/2017 1:42 PM
== END | disposition home or self-care (01) ==
LOC: C.CTS 12:17
PROVIDERS: ATTEND Nurse Practitioner Family
DX: C50.111 Malignant neoplasm of central portion of right female breast (principal); C79.51 Secondary malignant neoplasm of bone; R91.8 Other nonspecific abnormal finding of lung field

== ENCOUNTER → 2017-07-15 | Outpatient (CLI) | payer BC ==
[~2017-07-15] MED LIST changes: -OPTIRAY 320 IV PRN
[2017-07-15 13:55] LABS: INR 1.5 (0.9-1.1); PARTIAL THROMBOPLASTIN RATIO 1.6; PROTHROMBIN TIME (PATIENT) 15.8 SECONDS (9.0-12.0)
== END | disposition home or self-care (01) ==
LOC: C.LAB 13:12
PROVIDERS: ATTEND Internal Medicine Hematology & Oncology
DX: C50.111 Malignant neoplasm of central portion of right female breast (principal)

== ENCOUNTER → 2018-01-29 | Outpatient (CLI) | payer OTHER ==
[~2018-01-29] MED LIST changes: -ANAS1TAB6 PO; +ANAS1TAB7 PO; -BENZ100C84 PO; -CALC600T9 PO; -CEPH500C PO; -ENOX80IN SQ; -MULTTAB83 PO; +OPTIRAY 320 IV PRN; -PHEN-876 PO; -ULT50X PO
--- NOTE | 2018-01-29 10:47 | DIAGNOSTIC IMAGING REPORT ---
ABD/PELVIS IV AND ORAL CONT CLINICAL HISTORY: 62 years-old Female presenting with BREAST CA. TECHNIQUE: Multidetector CT of the abdomen and pelvis was performed after the administration of oral and intravenous contrast. IV contrast: 93 mL of Optiray 320. A dose lowering technique was used consistent with the principles of ALARA (as low as reasonably achievable). COMPARISON: 07/13/2017. CT DOSE (mGy.cm): The estimated cumulative dose is 1202.54. FINDINGS: Clinical Documentation Manager topogram: Unremarkable. Lung bases: Mosaic attenuation at the lung bases could suggest small airways disease. Scattered linear opacities likely atelectasis. Multiple solid pulmonary nodules in the right middle lobe measuring 6 mm (series 7 image 20) and 6 mm (series 7 image 31). These are unchanged from prior exam. Normal heart size. Coronary artery calcification. No pericardial or pleural effusion. Liver: Mildly nodular contour of the liver with relative hypertrophy of the left hepatic lobe and expansion of the fat in the gallbladder fossa and fissure for the ligamentum teres. No focal lesion. Patent hepatic vasculature. Biliary: No intrahepatic or extrahepatic biliary ductal dilatation. Gallbladder contains gallstones. Pancreas: Mild parenchymal atrophy. Scattered parenchymal calcification could suggest a history of chronic pancreatitis. Spleen: Normal. Adrenal glands: Normal. Kidneys and ureters: Few hypodensities in the kidneys likely simple cysts. No nephrolithiasis. No hydronephrosis. Ureters normal. Bladder: Normal. Pelvic organs: Normal. Bowel: Normal appendix. No bowel obstruction. Peritoneal cavity: No free fluid or intraperitoneal gas. Lymph nodes: No enlarged lymph nodes in the abdomen or pelvis. Vasculature: Atherosclerosis of the normal caliber abdominal aorta. IVC patent. Abdominal wall: Calcification and overlying skin thickening in the right breast could suggest posttreatment change. Musculoskeletal: Previously noted sclerotic osseous lesions in the pelvis and T12 vertebral body unchanged. No new lesions. Chronic fracture of the posterior left ninth rib. IMPRESSION: 1. Stable sclerotic osseous metastatic disease. No new sites of disease. 2. No other evidence of metastatic disease in abdomen or pelvis. No lymphadenopathy. 3. Stable solid pulmonary nodules in the right middle lobe measuring 6 mm. Electronically signed by: Geoffrey Madsen M.D. 01/29/2018 10:46 AM Dictated Date/Time: 01/29/2018 10:37 AM
--- NOTE | 2018-01-29 10:54 | DIAGNOSTIC IMAGING REPORT ---
CT (CHEST) THORAX WITH CT DOSE: 1202.54 mGy.cm HISTORY: Breast carcinoma BREAST CA TECHNIQUE: Multiaxial CT images of the chest were performed following the intravenous administration of contrast. A dose lowering technique was utilized adhering to the principles of ALARA. COMPARISON: 07/13/2017 FINDINGS: Pulmonary nodularity previously described remains stable. There is no evidence for new interval or progressive parenchymal nodule. There is no significant mediastinal or hilar adenopathy. Findings of bony metastatic disease shows a slight increase in sclerotic changes suggesting somewhat progressive healing. There is no evidence for a new lytic process. The density previously described abutting the right major fissure appear stable with no significant interval change. Limited evaluation the upper abdomen is unremarkable. IMPRESSION: 1. Stable pulmonary nodularity with no evidence for progression. 2. Slightly progressive sclerosis of the bony metastatic disease suggesting posttreatment healing. The above report was generated using voice recognition software. It may contain grammatical, syntax or spelling errors. Electronically signed by: Aron Ruelas M.D. 01/29/2018 10:53 AM Dictated Date/Time: 01/29/2018 10:43 AM
== END | disposition home or self-care (01) ==
LOC: C.CTS 07:55
PROVIDERS: ATTEND Internal Medicine Hematology & Oncology
DX: C50.111 Malignant neoplasm of central portion of right female breast (principal); C79.51 Secondary malignant neoplasm of bone

== ENCOUNTER → 2018-02-28 | Outpatient (CLI) | payer OTHER ==
[~2018-02-28] MED LIST changes: -OPTIRAY 320 IV PRN
--- NOTE | 2018-02-28 15:32 | MAMMOGRAPHY REPORT ---
BILATERAL DIGITAL DIAGNOSTIC MAMMOGRAM TOMOSYNTHESIS WITH CAD AND TARGETED RIGHT ULTRASOUND: 8 CLINICAL HISTORY: The patient presents for short interval follow-up of left breast calcifications. S he underwent biopsy of the right 6:00 breast mass December 2016 which yielded malignancy as well as a ri ght axillary rosio metastasis. She reports she also had bone metastases and is status post radiation to her spine as well as chemotherapy. She recently consulted with Dr. Rosenbaum regarding breast surge ry and the patient is still deciding if she is going to undergo breast surgery. TECHNIQUE: Breast tomosynthesis in addition to standard 2D mammography was performed. Current study was also evaluated with a Computer Aided Detection (CAD) system. Bilateral CC and MLO 2D and tomosyn thesis images and spot magnification left CC and ML views were obtained. COMPARISON: Comparison is made to exams dated: 08/15/2017 ultrasound, 08/15/2017 mammogram, 01/10/2017 ultrasound biopsy, 01/10/2017 mammogram, and 01/10/2017 ultrasound - [facility]. BREAST COMPOSITION: The tissue of both breasts is heterogeneously dense, which may obscure small mas ses. FINDINGS: Again noted is an irregular spiculated mass in the right subareolar breast with associated coarse dystrophic calcifications within the mass as well as nipple retraction. The mass is ill-defin ed and therefore difficult to measure but does not appear significantly changed compared to the 2016 exam and measures approximately 3.2 x 2.3 cm on the CC tomosynthesis images. A biopsy clip is again noted within the right axilla at the site of the biopsy-proven rosio metastas is. Mild ill-defined density surrounding the biopsy clip on the MLO view is stable compared to the 2016 exam. Previously seen thickening of the skin of the right breast is decreased. Regional punctate and round benign-appearing calcifications within the left upper inner quadrant are stable on spot magnification views dating back to December 2016 and are therefore probably benign. The remainder of both breasts are stable compared to prior exams, without suspicious masses, calcificatio ns, or areas of architectural distortion noted. Targeted ultrasound was performed of the right subareolar/6:00 periareolar breast. Again noted is an ill-defined irregular hypoechoic mass which is ill-defined and too large to measure accurately on ul trasound but measures at least 4.3 x 0.8 x 3.7 cm, and does not appear significantly changed compared to the August 2017 ultrasound exam. Coarse calcifications are again seen within the mass. Again noted is thickening of the overlying skin/nipple. IMPRESSION: ACR BI-RADS CATEGORY 6: KNOWN BIOPSY PROVEN MALIGNANCY, TARGETED ULTRASOUND ACR BI-RADS CATEGORY 6: KNOWN BIOPSY PROVEN MALIGNANCY 1. No significant interval change in the irregular spiculated mass and associated coarse calcificati ons within the right subareolar/6:00 breast at the site of the biopsy-proven malignancy, compared to the Aug 2017 exam. There is stable minimal density at the site of the biopsy-proven right axillary n odal metastasis. 2. Regional benign-appearing calcifications in the left upper inner quadrant are stable dating back to the December 2016 exam and are therefore probably benign. Recommend follow-up diagnostic mammograms of the left breast in 12 months to confirm at least 2 years of stability of the calcifications. The patient has been verbally notified of the results. Approximately 10% of breast cancers are not detected with mammography. A negative mammographic report should not delay biopsy if a clinically suggestive mass is present. Anna Jennings M.D. ah/:02/28/2018 12:05:26 Machine Adjuster: Codie GARCIA(Srinivas)(Jonny), [facility] letter sent: Shyam 6 BI-RADS Code: ACR BI-RADS Category 6: Known Biopsy Proven Malignancy Ultrasound BI-RADS: ACR BI-RADS Category 6: Known Biopsy Proven Malignancy
== END | disposition home or self-care (01) ==
LOC: C.MAMM 10:31
PROVIDERS: ATTEND Nurse Practitioner Family
DX: N63.10 Unspecified lump in the right breast, unspecified quadrant (principal); R92.0 Mammographic microcalcification found on diagnostic imaging of breast; Z85.3 Personal history of malignant neoplasm of breast